=== PATIENT | female | born 1995 | race Caucasian/White ===

== ENCOUNTER 2019-10-02 11:35 | Outpatient (CLI) | payer MEDICAID, SELFPAY ==
[2019-10-02 11:50] VITALS: BMI 34.8
[2019-10-02 12:30] VITALS: BP 119/65; RESP 18
== END 2019-10-02 12:30 | disposition home or self-care (01) ==
PROVIDERS: Family Provider Family Medicine; Visit Provider Family Medicine
DX: O26.899 Other specified pregnancy related conditions, unspecified trimester (principal); Z3A.00 Weeks of gestation of pregnancy not specified
CPT/HCPCS: 59025

== ENCOUNTER 2019-10-06 12:02 | Outpatient (CLI) | payer MEDICAID, SELFPAY ==
--- NOTE | 2019-10-06 12:05 | PC.NURSE ---
When the patient entered her room, she stated she had a question for the nurse. The patient stated she had been giving herself her insulin injections in her thighs since her left, and that they had been leaving red welts on the tops of her thighs. This song writer looked at her thighs, and she had several nickel sized spots that were red where she had injected her insulin. This song writer told the patient she would speak with Dr. Coronado regarding where she could give herself her insulin injections, as she is refusing to give them to herself in her stomach.
[2019-10-06 12:17] VITALS: RESP 16; TEMP 36.7
[2019-10-06 12:21] VITALS: BP 114/59; PULSE 94
[2019-10-06 12:31] VITALS: BMI 34.9
[2019-10-06 12:37] VITALS: BP 104/52; PULSE 114
--- NOTE | 2019-10-06 12:48 | PC.NURSE ---
Dr. Coronado updated on patient having nickel size spots on her thighs. Dr. Coronado stated the patient should use the side of her thigh, and pinch up a section on the inside of her thigh to give herself her injection. Other options include her abdomen, and the back of her arm. The patient was updated on this information, and acknowledged understanding.
[2019-10-06 12:51] VITALS: BP 0/0
== END 2019-10-06 12:55 | disposition home or self-care (01) ==
LOC: OPOB 12:12 → OBGYN 12:50 → OPOB 14:56
PROVIDERS: Family Provider Family Medicine; PCP Family Medicine; Visit Provider Family Medicine
DX: O24.419 Gestational diabetes mellitus in pregnancy, unspecified control (principal); Z3A.00 Weeks of gestation of pregnancy not specified
CPT/HCPCS: 59025; 99211

== ENCOUNTER 2019-10-09 07:15 | Outpatient (CLI) | payer MEDICAID, SELFPAY ==
--- NOTE | 2019-10-09 07:31 | US_ITS ---
WS: [id number] ULTRASOUND OB LIMITED TECHNIQUE: Limited ultrasound examination of the fetus. CLINICAL INFORMATION: GESTATIONAL DIABETES COMPARISON: None. FINDINGS: Cervix 4.7 cm Single interuterine gestation. presentation is vertex Placental location is posterior. Placenta grade: 1 heart rate 138 BPM. Normal MAXX 15.06 cm weight 4 lbs. 12 oz. Estimated gestational age 33 weeks 3 days. Estimated delivery 3 020 Biophysical profile 8 out of 8. breathin movement: 2 tone: 2 Amniotic fluid: 2 IMPRESSION Normal biophysical profile 8 out of 8
== END 2019-10-09 07:16 | disposition home or self-care (01) ==
LOC: RAD 07:20
PROVIDERS: Family Provider Family Medicine; PCP Family Medicine; Visit Provider Family Medicine
DX: O24.419 Gestational diabetes mellitus in pregnancy, unspecified control (principal); Z3A.33 33 weeks gestation of pregnancy
CPT/HCPCS: 76816; 76819

== ENCOUNTER 2019-10-13 12:13 | Outpatient (CLI) | payer MEDICAID, SELFPAY ==
[2019-10-13 12:33] VITALS: RESP 16; TEMP 37.2
[2019-10-13 12:49] VITALS: RESP 17
[2019-10-13 13:09] VITALS: BMI 34.7
== END 2019-10-13 13:05 | disposition home or self-care (01) ==
PROVIDERS: Family Provider Family Medicine; PCP Family Medicine; Visit Provider Family Medicine
DX: O24.419 Gestational diabetes mellitus in pregnancy, unspecified control (principal); Z3A.00 Weeks of gestation of pregnancy not specified
CPT/HCPCS: 59025

== ENCOUNTER 2019-10-16 09:06 | Outpatient (CLI) | payer MEDICAID, SELFPAY ==
--- NOTE | 2019-10-16 09:19 | US_ITS ---
WS: [id number] BIOPHYSICAL PROFILE HISTORY: GESTATIONAL DIABETES COMPARISON: None available. Parameters are as follows: Breathin Movement: 2 Tone: 2 Fluid volume: 2 Vertex position. Cervix is closed at 4.3 cm. Heart rate at 141 bpm. Largest vertical pocket of amniot ic fluid 5.1 cm. Biophysical profile score: 8/8. US/US OB BPP wo NST [id number] IMPRESSION:
== END 2019-10-16 09:07 | disposition home or self-care (01) ==
PROVIDERS: Family Provider Family Medicine; PCP Family Medicine; Visit Provider Family Medicine
DX: O24.419 Gestational diabetes mellitus in pregnancy, unspecified control (principal)
CPT/HCPCS: 76816; 76819

== ENCOUNTER 2019-10-16 09:41 | Outpatient (CLI) | payer MEDICAID, SELFPAY ==
[2019-10-16 09:55] VITALS: RESP 17; TEMP 37.1; BMI 34.7
[2019-10-16 10:03] VITALS: BP 117/64; PULSE 101
[2019-10-16 10:40] VITALS: BP 117/64; PULSE 101; RESP 17; TEMP 37.1
== END 2019-10-16 10:40 | disposition home or self-care (01) ==
LOC: OPOB 09:47
PROVIDERS: Family Provider Family Medicine; PCP Family Medicine; Visit Provider Family Medicine
DX: O24.419 Gestational diabetes mellitus in pregnancy, unspecified control (principal); Z3A.00 Weeks of gestation of pregnancy not specified
CPT/HCPCS: 59025; 99211

== ENCOUNTER 2019-10-20 11:24 | Outpatient (CLI) | payer MEDICAID, SELFPAY ==
[2019-10-20 12:20] VITALS: BP 125/69; PULSE 118; RESP 18; TEMP 36.4
[2019-10-20 12:52] VITALS: BP 125/69; PULSE 118; RESP 18; TEMP 36.4; BMI 34.8
== END 2019-10-20 11:25 | disposition home or self-care (01) ==
LOC: OPOB 11:28
PROVIDERS: Family Provider Family Medicine; Visit Provider Family Medicine
DX: O24.419 Gestational diabetes mellitus in pregnancy, unspecified control (principal); Z3A.00 Weeks of gestation of pregnancy not specified
CPT/HCPCS: 59025

== ENCOUNTER 2019-10-23 09:14 | Outpatient (CLI) | payer MEDICAID, SELFPAY ==
--- NOTE | 2019-10-23 09:17 | US_ITS ---
WS: [id number] ULTRASOUND OB LIMITED TECHNIQUE: Limited ultrasound examination of the fetus. CLINICAL INFORMATION: GESTATIONAL DIABETES COMPARISON: October 16, 2019 FINDINGS: Cervix is closed and measures 4.3 cm Single interuterine gestation. presentation is vertex Placental location is posterior. Placenta grade: 2 heart rate 141 BPM. Normal MAXX BPD 8.8 cm Head circumference 31.3 cm Abdominal circumference 31.7 cm Femur length 7.0 CM Biophysical profile 8 out of 8. breathin movement: 2 tone: 2 Amniotic fluid: 2 IMPRESSION Normal biophysical profile 8 out of 8
== END 2019-10-23 09:15 | disposition home or self-care (01) ==
LOC: RAD 09:15
PROVIDERS: Family Provider Family Medicine; Visit Provider Family Medicine
DX: O24.419 Gestational diabetes mellitus in pregnancy, unspecified control (principal)
CPT/HCPCS: 76816; 76819

== ENCOUNTER 2019-10-27 10:22 | Outpatient (CLI) | payer MEDICAID, SELFPAY ==
[2019-10-27 10:37] VITALS: BP 129/71; PULSE 87
[2019-10-27 10:57] VITALS: BP 0/0
[2019-10-27 10:58] VITALS: BMI 35.2
[2019-10-27 10:59] VITALS: BP 131/70; PULSE 94
[2019-10-27 11:12] VITALS: BP 0/0
[2019-10-27 11:14] VITALS: BP 127/68; PULSE 98
== END 2019-10-27 11:17 | disposition home or self-care (01) ==
PROVIDERS: Family Provider Family Medicine; Visit Provider Family Medicine
DX: O24.419 Gestational diabetes mellitus in pregnancy, unspecified control (principal); Z3A.00 Weeks of gestation of pregnancy not specified
CPT/HCPCS: 59025

== ENCOUNTER 2019-10-30 09:50 | Outpatient (CLI) | payer MEDICAID, SELFPAY ==
--- NOTE | 2019-10-30 10:15 | US_ITS ---
WS: [id number] BIOPHYSICAL PROFILE AND LIMITED OB. HISTORY: GESTATIONAL DIABETES COMPARISON: 10/23/2019, 04/21/2019, 10/09/2019 Presentation: Cephalic Cervix: Closed. Placenta: Posterior, no previa or abruption. Grade: 1 HEART: FHR of 141BPM. measurements: BPD = 9.2 cm = 37w1d HC = 32.9 cm = 37w3d AC = 33.0 cm = 37w0d FL = 7.3 cm = 37w2d Visually the amount of amniotic fluid is normal. Largest vertical pocket of fluid is 4.9 cm. EFW: 3121g; 76 %. AGA by ultrasound: 37w2d DINESH by ultrasound: 11/18/2019 Measurements are internally concordant. age is within 2 weeks of the previously determined EDC at first trimester of 11/27/2019. Biophysical profile: Parameters are as follows: Breathin Movement: 2 Tone: 2 Fluid volume: 2 1. Biophysical profile score: 8/8. 2. Single intrauterine gestation of 37w2d and 11/18/2019. No growth asymmetry and appropriate growth since the first trimester ultrasound. 3. Estimated weight: 3121 g. US/US OB F/U w BPP wo NST IMPRESSION:
== END 2019-10-30 09:51 | disposition home or self-care (01) ==
LOC: US 09:51
PROVIDERS: Family Provider Family Medicine; PCP Family Medicine; Visit Provider Family Medicine
DX: O24.419 Gestational diabetes mellitus in pregnancy, unspecified control (principal); Z36.2 Encounter for other antenatal screening follow-up; Z3A.37 37 weeks gestation of pregnancy
CPT/HCPCS: 76816; 76819

== ENCOUNTER 2019-10-30 10:43 | Outpatient (CLI) | payer MEDICAID, SELFPAY ==
[2019-10-30 10:50] VITALS: BMI 35.2
[2019-10-30 11:36] VITALS: BP 118/72; PULSE 78; RESP 18
== END 2019-10-30 11:36 | disposition home or self-care (01) ==
PROVIDERS: Family Provider Family Medicine; PCP Family Medicine; Visit Provider Family Medicine
DX: O24.419 Gestational diabetes mellitus in pregnancy, unspecified control (principal); Z3A.00 Weeks of gestation of pregnancy not specified
CPT/HCPCS: 59025

== ENCOUNTER 2019-11-06 12:20 | Outpatient (CLI) | payer MEDICAID, SELFPAY ==
--- NOTE | 2019-11-06 12:45 | US_ITS ---
WS: [id number] BIOPHYSICAL PROFILE HISTORY: GESTATIONAL DIABETES COMPARISON: 10/30/2019 Parameters are as follows: Breathin Movement: 2 Tone: 2 Fluid volume: 2 Single intrauterine gestation in vertex presentation. Heart rate 147 bpm. Placenta is posterior and g rade 1. Largest vertical pocket of amniotic fluid is 5.8 cm. Biophysical profile score: 8/8. US/US OB BPP wo NST [id number] IMPRESSION:
== END 2019-11-06 12:21 | disposition home or self-care (01) ==
LOC: US 12:20
PROVIDERS: Family Provider Family Medicine; PCP Family Medicine; Visit Provider Family Medicine
DX: O24.419 Gestational diabetes mellitus in pregnancy, unspecified control (principal)
CPT/HCPCS: 76819

== ENCOUNTER 2019-11-06 12:50 | Outpatient (CLI) | payer MEDICAID, SELFPAY ==
[2019-11-06 13:00] VITALS: BMI 35.2
[2019-11-06 13:02] VITALS: BP 122/79; PULSE 112; RESP 16; TEMP 36.5
[2019-11-06 13:31] VITALS: BP 132/67; PULSE 90
== END 2019-11-06 13:32 | disposition home or self-care (01) ==
PROVIDERS: Family Provider Family Medicine; PCP Family Medicine; Visit Provider Family Medicine
DX: O24.419 Gestational diabetes mellitus in pregnancy, unspecified control (principal); Z3A.00 Weeks of gestation of pregnancy not specified
CPT/HCPCS: 59025; 99211

== ENCOUNTER 2019-11-10 10:34 | Outpatient (CLI) | payer MEDICAID, SELFPAY ==
[2019-11-10 10:41] VITALS: BMI 35.2
[2019-11-10 10:48] VITALS: RESP 18; TEMP 36.8
[2019-11-10 10:50] VITALS: BP 0/0; BP 122/67; PULSE 120
[2019-11-10 10:56] VITALS: BP 118/62; PULSE 120
== END 2019-11-10 11:05 | disposition home or self-care (01) ==
LOC: OPOB 10:37
PROVIDERS: Family Provider Family Medicine; PCP Family Medicine; Visit Provider Family Medicine
DX: O24.419 Gestational diabetes mellitus in pregnancy, unspecified control (principal); Z3A.00 Weeks of gestation of pregnancy not specified
CPT/HCPCS: 59025

== ENCOUNTER 2019-11-13 12:14 | Outpatient (CLI) | payer MEDICAID, SELFPAY ==
--- NOTE | 2019-11-13 12:25 | US_ITS ---
WS: [id number] US OB F/U w BPP wo NST REASON FOR EXAM: GESTATIONAL DIABETES FINDINGS: Biophysical profile 04/30. A single fetus is seen in the cephalic presentation a posterior placenta is noted. Placenta appears t o be grade 2 The heart rate with a due date of November 27, 2019. 150 bpm. The fetus appears to be by gestational age 38 weeks gestation. US/US OB F/U w BPP wo NST IMPRESSION: Biophysical profile 04/30 The fetus is at 38 weeks gestation with a due date of November 27, 2019
== END 2019-11-13 12:15 | disposition home or self-care (01) ==
LOC: US 12:17
PROVIDERS: Family Provider Family Medicine; PCP Family Medicine; Visit Provider Family Medicine
DX: O24.419 Gestational diabetes mellitus in pregnancy, unspecified control (principal); Z3A.38 38 weeks gestation of pregnancy
CPT/HCPCS: 76816; 76819

== ENCOUNTER 2019-11-13 12:41 | Outpatient (CLI) | payer MEDICAID, SELFPAY ==
[2019-11-13 13:13] VITALS: BP 113/69; PULSE 94; RESP 16
[2019-11-13 13:30] VITALS: TEMP 36.9
[2019-11-13 13:32] VITALS: BMI 35.4
== END 2019-11-13 13:26 | disposition home or self-care (01) ==
PROVIDERS: Family Provider Family Medicine; PCP Family Medicine; Visit Provider Family Medicine
DX: O24.419 Gestational diabetes mellitus in pregnancy, unspecified control (principal); Z3A.00 Weeks of gestation of pregnancy not specified
CPT/HCPCS: 59025; 99211

== ENCOUNTER 2019-11-16 20:00 | Inpatient (IN) | payer MEDICAID, SELFPAY ==
--- NOTE | 2019-11-09 14:26 | ANES.PREANE2 ---
Pre-Anesthetic Assessment Pre-Anesthetic Assessment: Height/Weight: Height 1.65 m Preop Diagnosis: IUP Proposed Procedure: Epidural Familial anesthetic complications: None, but patient states she's had back pain since her epidural last time and would like to avoid placement this Social: Social History: No alcohol and No tobacco Exam: Pre-Anes Outpt Exam: alert, oriented x 3, clear to auscultation bilaterally and regular rate & rhythm Airway: Cervical ROM: WNL MP: 2 Dentition: Full Pulmonary: Pulmonary: None reported CV/HEM: CV/HEM: None reported : : None reported Hepatic: Hepatic: None reported GI: GI: GERD Metabolic: Comments: gestational DM Musc/skel: Musc/skel: Lower Back Pain and Scoliosis Comments: ? Scoliosis - informed by chiropractor Multiple broken bones L hip locks up for 20 minutes - severe muscle cramping (caused by sitting and walking too long. Has to wait these pains out, nothing helps). Neuropsych: Neuropsych: None reported Anesthetic Plan: ASA status: 2 Anesthesia: Regional (specify below) Other: epidural Risk of > 500 ml blood loss (7ml/kg in children): Yes, adequate IV access and fluids planned Data Anesthesia Cardiac Studies: No Data to Display
[2019-11-16] VITALS (10 sets, daily range): BP systolic 0–135; BP diastolic 0–74; PULSE 75–116; RESP 16; TEMP 37; BMI 35.7
[2019-11-16 20:50] LABS: Basophils % 0.2 %; Eosinophils # 0.1 10^3/uL (0.0-0.8); Eosinophils % 0.5 %; Hematocrit 33.2 % (37.0-47.0); Hemoglobin 10.4 g/dL (11.5-15.3); Lymphocytes # 1.8 10^3/uL (0.8-4.8); Mean Corpuscular HGB Conc 31.3 g/dL (30.0-36.0); Mean Corpuscular Hemoglobin 26.9 pg (28.0-34.0); Mean Corpuscular Volume 85.8 fL (81-99); Mean Platelet Volume 10.1 fL (7.4-10.4); Monocytes # 0.9 10^3/uL (0.2-0.9); Monocytes % 9.2 %; Neutrophils # 6.6 10^3/uL (1.8-7.7); Neutrophils % 70.6 %; Nucleated Red Blood Cells % 0 %; Platelet Count 279 10^3/cmm (130-400); Red Blood Count 3.87 10^6/uL (4.1-5.3); Red Cell Distribution Width 14.9 % (12.1-15.1); White Blood Count 9.3 10^3/uL (4.0-10.0)
[2019-11-16] MEDS: miSOPROStol 100 mcg tablet 25 MCG VAGINAL (21:36)
[2019-11-16 21:40] LABS: Glucose Point of Care 83 mg/dL (70-110)
[2019-11-17] VITALS (54 sets, daily range): BP systolic 0–123; BP diastolic 0–81; PULSE 66–91; RESP 16–17; TEMP 36.7–36.9
[2019-11-17 06:53] LABS: Glucose Point of Care 63 mg/dL (70-110)
--- NOTE | 2019-11-17 07:35 | P.HP_ITS ---
Providers/Chief Complaint Admitting Physician: Jazz Coronado MD Primary Care Provider: Jazz Coronado MD Chief Complaint: supervision of high risk preg est due date 11/28/19 HPI DATA ANALYTICS ANALYST History of Present Illness Casie Reid is a 24 year old female 3 para 1-0-1-1 with an EDC of 11/27/2019 as determined by ultrasound done at 8-1/2 weeks gestation on 04/21/2019. She presents last evening at 38-3/7 weeks gestation for cervical ripening and i nduction of labor secondary to gestational diabetes requiring insulin. She has been well controlled with progressively increasing doses of insulin. testing has been reassuring, and growth ultrasounds reveal no polyhydramnios nor large for gestational age status. Her course has also been complicated by anemia of , obesity complicating and rubella nonimmune s tatus. Present Details : 3 Para: 1 Date of Last Menstrual Period: 10/06/18 Calculated Date of Delivery: 07/13/19 Gestational Age Based on Last Menstrual Period: 57 Dating criteria OB: based on 1st trimester US only care: good care Ultrasounds: normal 1st trimester US and normal mid trimester US Obstetrical complications: gestational diabetes (Requiring insulin) Medical complications OB: other (Anemia, obesity, rubella nonimmune) Labs Blood type OB HPI: A (+) positive Rubella: Non-Immune RPR: Negative GBS: Negative HBsAG: Negative Other Lab Information: Antibody screen: Negative Hemoglobin: Initially 14.8, 28-week recheck 10.9 Platelets: 300 Urine culture: Negative Hep C antibody: Negative Varicella: Immune HIV screen: Negative Pap: LS IL GC/Chlamydia: Negative/negative 1 hour GTT: 177 3-hour GTT: Fasting 107, 1 hour 210, 2-hour 184, 3-hour 146 Review of Systems Const: Denies: fever or chills : Denies: vaginal odor, vaginal bleeding, vaginal discharge or pelvic pain Psych: Denies: anxiety or depression Medications/Allergies Allergies Allergy/AdvReac Type Severity Reaction Status Date / Time No Known Allergies Allergy Verified 10/06/19 13:13 [facility] DATA ANALYTICS ANALYST Medical History (Updated 11/17/19 @ 07:59 by Jazz Coronado MD) Anxiety Depression Migraine headache Surgical History (Updated 11/17/19 @ 07:47 by Jazz Coronado MD) History of colonoscopy History of cranioplasty Social History (Updated 11/17/19 @ 07:50 by Jazz Coronado MD) Smoking and tobacco status: former smoker Substance/Drug Use: never Adopted: No Caregiver/support person: Yes Lives independently: Yes Household members: spouse and children Marital status: Number of children: 1 Number of grandchildren: 0 Education level details: High school graduate, some college Current occupational status: unemployed Current occupational exposures/hazards: No History History 3 Term 1 Miscarriages/Ectopic 1 0 Living Children 1 Past Pregnancies Del. Date GA/Weeks Outcome Route Wt Inf Gender Labor Lgth Comp. Anesth esia Location Unknown spontaneous 02/19/14 41 live - full term Vaginal 7 lb 8 oz Male Ot her [facility] Delivery Date: No notes to display Delivery Date: 02/19/14 On 11/17/19 @ 07:52 Jazz Coronado Induction of labor, meconium stained fluid Vitals/I&O/Wt Last Vital Signs Temp 98.4 F 11/17/19 04:13 Pulse 76 11/17/19 07:01 Resp 16 11/17/19 04:13 BP 104/63 11/17/19 07:01 Weight last 48 hrs Weight 215 lb Physical Exam Narrative: EXAM NARRATIVE: Patient had mild and irregular contractions upon arrival which she states were not really painful. heart tones were category 1 with moderate variability, normal baseline, many accelerations and no decelerations. For complete physical examination please refer to her record. Const: COMMON NORMALS: no apparent distress, oriented x3, no limitations, healthy appearing, alert and well nourished : MANUAL OB EXAM: dilated 1 cm, effaced (40%), station high and other (Vertex) Neuro: COMMON NORMALS: oriented x3 SENSORIUM/ORIENTATION: Yes alert Psych: COMMON NORMALS: mental status grossly normal, thought process normal, cooperative, affect normal, speech normal and activity/motor behavior normal SPEECH: Yes normal speech THOUGHT PROCESS: normal thought process Data : 11/16/19 20:39 A&P Assessment and plan (1) 38 weeks gestation of : Status: Acute Code(s): Z3A.38 - 38 weeks gestation of (2) Encounter for induction of labor: Patient received a single dose of Cytotec last evening and continues to contract every 2 to 3 minutes off of that dose. She states that her pain has increased in intensity. Her cervix went from 1 cm dilated and 40% effaced to 3 cm dilated and 50% effaced with vertex still high to -3 station. At this point we will have her eat breakfast and then will entertain initiation of Cytotec per the moderate dose protocol. Status: Acute Code(s): Z34.90 - Encounter for supervision of normal , unspecified, unspecified trimester (3) Gestational diabetes requiring insulin: Patient received her Levemir last evening 55 units subcutaneously and will eat breakfast this morning. We will then monitor her blood glucose every 2 hours while she is actively laboring. Status: Acute Code(s): O24.414 - Gestational diabetes mellitus in , insulin controlled (4) Rubella non-immune status, antepartum: Patient will receive rubella immunization Status: Acute Code(s): O99.89 - Other specified diseases and conditions complicating , childbirth and the puerperium; Z28.3 - Underimmunization status (5) Anemia affecting in third trimester: Patient continues with her iron Status: Acute Code(s): O99.013 - Anemia complicating , third trimester (6) Obesity affecting in third trimester: Patient gained less than 25 pounds during this Status: Acute Code(s): O99.213 - Obesity complicating , third trimester (7) LGSIL on Pap smear of cervix: We plan for repeat Pap with colposcopy Status: Acute Code(s): R87.612 - Low grade squamous intraepithelial lesion on cytologic smear of cervix (LGSIL) Attestations Medical Necessity Statement*: As patient has not yet delivered and is undergoing induction of labor secondary to gestational diabetes requiring insulin, she will continue to need inpatient hospitalization. Coding Level of Care Code Acute Desizing Machine Offbearer for Chg Fwd Diagnoses 38 weeks gestation of Z3A.38 Encounter for induction of labor Z34.90 Gestational diabetes requiring insulin O24.414 Rubella non-immune status, antepartum O99.89; Z28.3 Anemia affecting in third trimester O99.013 Obesity affecting in third trimester O99.213 LGSIL on Pap smear of cervix R87.612
[2019-11-17] MEDS: lactated ringers 1,000 ML 125 ML IV (09:43)
[2019-11-17] MEDS: oxytocin 30 UNIT/500 ML BAG IV (09:43)
[2019-11-17 11:11] LABS: Glucose Point of Care 89 mg/dL (70-110)
[2019-11-17] MEDS: fentaNYL 50 mcg/mL INJ 2mL IV (16:08)
[2019-11-17 16:13] LABS: Glucose Point of Care 71 mg/dL (70-110)
--- NOTE | 2019-11-17 17:13 | P.PN_ITS ---
SUPERVISOR TUMBLING AND ROLLING Subjective Subjective: Interval history: Patient ate breakfast this morning and took a shower, and we then started Pitocin per the moderate dose protocol. She contracted as frequently as every 2 to 5 minutes while on maximum dose Pitocin (20 milliunits/min) for 2 hours and rated her pain an 8 out of 10. Upon recheck of her cervix, she was still 3 cm dilated perhaps had gone from 50 to 60% effaced and was still -3 station. She did take a dose of fentanyl for pain relief. Medications: Reviewed: Yes Labor: Pain Control: narcotic analgesia Dilation (cm): 3 Effacement (%): 60 Station: -3 Amniotic Membrane Status: Intact Monitor Mode: External Contraction Pattern: Regular Status: Category l Vitals/I&O/Wt Last Vital Signs Temp 98.1 F 11/17/19 09:18 Pulse 68 11/17/19 16:04 Resp 16 11/17/19 16:08 BP 121/81 11/17/19 16:04 11/17/19 11/17/19 11/17/19 06:59 14:59 22:59 Intake Total 558.366 / 558.366 595.333 / 1153.699 Balance 558.366 / 558.366 595.333 / 1153.699 Weight last 48 hrs Weight 215 lb Physical Exam Narrative: EXAM NARRATIVE: heart tones are category 1 with a normal baseline, moderate variability, many accelerations and no decelerations. Contractions are now every 2 to 5 minutes and of decreasing frequency and intensity now that the Pitocin has been discontinued. Data : 11/16/19 20:39 A&P Additional A&P Information At this point her glucose monitoring has been within guidelines for labor. We opted to discontinue the Pitocin and have her eat supper. We then discussed options to include going home to rest now to return within 24 to 36 hours, trying a dose of Cytotec and reevaluating in 4 hours with the option of going home then if not making cervical change, again with 24 to 36-hour follow-up and possible amniotomy. Upon rechecking her cervix, I recommended that we delete amniotomy as an option for now given her station and possibility of a long labor and risk of infection. At this point she will ambulate for a brief time and will then take another dose of Cytotec and will reevaluate in 4 hours. Attestations Medical Necessity Statement*: As patient is in the process of being induced she will continue to need inpatient hospitalization. Coding Level of Care Code Acute Home Performance Consultant for Bennett Harley
[2019-11-17] MEDS: miSOPROStol 100 mcg tablet 25 MCG VAGINAL ×2 (17:59→22:49)
[2019-11-17 19:27] LABS: Glucose Point of Care 77 mg/dL (70-110)
[2019-11-17] MEDS: promethazine 25 mg/mL SDV 1 mL IM (23:13)
[2019-11-17] MEDS: morphine 4 mg/mL SDV 1 mL 8 MG IM (23:14)
[2019-11-18] VITALS (100 sets, daily range): BP systolic 0–141; BP diastolic 0–92; PULSE 58–155; RESP 16–22; TEMP 36.7–37.2; O2SAT 97–100
[2019-11-18 06:46] LABS: Glucose Point of Care 71 mg/dL (70-110)
--- NOTE | 2019-11-18 08:22 | P.PN_ITS ---
RN ACUTE Subjective Subjective: Interval history: Last night patient had a dose of Cytotec and then took the low-dose morphine Phenergan sleeper. She contracted irregularly throughout the night and rated her pain at a 4 out of 10 but was able to get 5 hours of sleep and this morning was 4 cm dilated, 60% effaced and still -3 station. She ate breakfast and has been abiodun irregularly. Labor: Pain Control: tolerating well Dilation (cm): 4 Effacement (%): 60 Station: -3 Amniotic Membrane Status: Intact Monitor Mode: External Contraction Pattern: Irregular Contraction Intensity: Moderate Status: Category l Vitals/I&O/Wt Last Vital Signs Temp 98.3 F 11/18/19 05:06 Pulse 81 11/18/19 08:18 Resp 16 11/18/19 05:06 BP 113/61 11/18/19 08:18 11/17/19 11/18/19 11/18/19 22:59 06:59 14:59 Intake Total 595.333 / 1153.699 Balance 595.333 / 1153.699 Weight last 48 hrs Weight 215 lb Data : 11/16/19 20:39 A&P Additional A&P Information Amniotomy was performed just now at about 8:15 AM and was productive of a moderate to large amount of clear fluid. Patient states that she is doing fine right now without pain medication, and her blood glucose has been within goal range thus far. Patient states that she may reconsider on the epidural but declines that at this time. Attestations Medical Necessity Statement*: As patient has ruptured membranes and has not yet delivered she will continue to need inpatient hospitalization. Coding Level of Care Code Acute Carburetor Mechanic for Bennett Harley
[2019-11-18] MEDS: fentaNYL 50 mcg/mL INJ 2mL IV ×2 (09:13→10:22)
[2019-11-18 09:32] LABS: Glucose Point of Care 109 mg/dL (70-110)
[2019-11-18] MEDS: lactated ringers 1,000 ML 999 ML IV ×2 (10:20→11:15)
--- NOTE | 2019-11-18 11:21 | P.ANESUD_ITS ---
Pre-Anesthetic Update Pre-Anesthetic Assessment: Date of Surgery/Procedure: 11/18/19 Preop Merari gnosis: IUP Any changes to Pre-Anesthetic Assessment?: No Last Intake: 07:00 Labs Last 48hrs: Laboratory Results - last 48 hr 11/16/19 11/16/19 11/17/19 20:39 21:35 06:47 WBC 9.3 RBC 3.87 L Hgb 10.4 L Hct 33.2 L MCV 85.8 MCH 26.9 L MCHC 31.3 RDW 14.9 Plt Count 279 MPV 10.1 Neut % (Auto) 70.6 Lymph % (Auto) 19.0 [place] % (Auto) 9.2 Eos % (Auto) 0.5 Baso % (Auto) 0.2 Neut # (Auto) 6.6 Lymph # (Auto) 1.8 [place] # (Auto) 0.9 Eos # (Auto) 0.1 Baso # (Auto) 0.0 Nucleated RBC % (a uto) 0 Nucleated RBCs # 0.0 POC Glucose 83 63 11/17/19 11/17/19 11/17/19 11:08 15:58 19:24 WBC RBC Hgb Hct MCV MCH MCHC RDW Plt Count MPV Neut % (Auto) Lymph % (Auto) [place] % (Auto) Eos % (Auto) Baso % (Auto) Neut # (Auto) Lymph # (Auto) [place] # (Auto) Eos # (Auto) Baso # (Auto) Nucleated RBC % (a uto) Nucleated RBCs # POC Glucose 89 71 77 11/18/19 11/18/19 06:37 09:07 WBC RBC Hgb Hct MCV MCH MCHC RDW Plt Count MPV Neut % (Auto) Lymph % (Auto) [place] % (Auto) Eos % (Auto) Baso % (Auto) Neut # (Auto) Lymph # (Auto) [place] # (Auto) Eos # (Auto) Baso # (Auto) Nucleated RBC % (a uto) Nucleated RBCs # POC Glucose 71 109 Vitals: Temperature 98.9 F 11/18/19 08:30 Temperature Source Oral 11/18/19 08:30 Pulse Rate 72 11/18/19 11:17 Pulse Rhythm 11/16/19 20:36 Pulse Strength 3+ Normal 11/16/19 20:36 Respiratory Rate 17 02/26/20 10:22 Respiratory Effort 11/18/19 10:22 Respiratory Depth Normal 11/18/19 10:22 Respiratory Patter n 11/18/19 10:22 Blood Pressure 110/52 11/18/19 11:17 Blood Pressure Hannah n 73 11/18/19 11:17 Blood Pressure Pos ition Sitting 11/16/19 20:15 Pulse Oximetry 100 11/18/19 11:20 Oxygen Delivery Me thod 11/16/19 20:36 Exam: Pre-Anes Outpt Exam: alert, oriented x 3, clear to auscultation bilaterally and regular rate & rhythm Cardiac Studies: No Data to Display
--- NOTE | 2019-11-18 11:22 | ANES.PROC ---
Anesthesia Procedures Procedure/Date: 11/18/19 Epidural: Time Out Performed: Yes Consents Signed: Procedure Consent Consent: requested by attending/covering physician, from patient, risks and benefits reviewed and patient agrees to proceed Lumbar Level: L3-L4 Epidural position: sitting Epidural procedure: sterile prep of area, 1% lidocaine to numb the area, neg for paresthesia, 1.5% xylocaine 1:200k epi, placed PCEA, no systemic response, sterile dressing applied, L.U.D. no apparent complications and 0.2% Ropiavacaine @ mls/hr Additional Comments: Bupiv 0.25% 8cc and Fentanyl 100 mcg bolus @ 1118 slow
[2019-11-18 12:11] LABS: Glucose Point of Care 59 mg/dL (70-110)
[2019-11-18] MEDS: oxytocin 30 UNIT/500 ML BAG IV (12:40)
[2019-11-18] MEDS: dextrose 5%-lactated ringers 1,000 ML 125 ML IV (12:40)
[2019-11-18 14:07] LABS: Glucose Point of Care 57 mg/dL (70-110)
[2019-11-18 15:16] LABS: Glucose Point of Care 76 mg/dL (70-110)
--- NOTE | 2019-11-18 17:57 | P.PCNOB_ITS ---
Delivery Note: Date of delivery: November 18, 2019 Pre-Delivery Course: Patient arrived the evening of 11/16/2019 at 38-3/7 weeks gestation. A dose of Cytotec was placed that evening, and patient began abiodun fairly regularly. She went from 1 cm dilated and 50% effaced to 3 cm dilated and 60% effaced the morning of 11/17/2019. At that point she ate breakfast, took a shower and then we began Pitocin per the moderate dose protocol. After approximately 6 hours of Pitocin, 2 of which were at maximum dose of 20 milliunits/min, her cervix was unchanged. At that point we stopped the Pitocin, she ate supper and we placed a dose of Cytotec. She also had a low-dose morphine Phenergan sleeper and was able to get at least 5 hours of quality sleep the evening of 11/17/2019. This morning, after having some irregular contractions throughout the night, she was 4 cm dilated and 75% effaced. Amniotomy was performed at 8:15 AM and was productive of a moderate to large amount of clear fluid. Patient then experienced more intense contractions and opted for an epidural. She received it when she was 5 cm dilated and became comfortable. She then gradually dilated to an 8 and then an anterior rim and then was found to be completely dilated at 1650. Delivery: We began the active portion of the second stage of her labor at 1706. After a brief 8-minutes of pushing she delivered a viable female infant at 1714. Head was OA. There was no nuchal cord. Bulb suctioning was done upon delivery of the baby's head and of her body. Baby was placed on mother's abdomen while the cord was clamped by myself and cut by maternal grandmother. Gentle traction was placed on the cord, and intravenous Pitocin was begun in routine doses. Placenta delivered intact at 1720. It appeared normal. Perineum and cervix were inspected, and she was intact with the exception of some very mild bilateral periurethral abrasions. Fundal exam revealed a firm uterus which was just below the umbilicus. Post-Delivery Status: Estimated blood loss was 150 mL's. Mother and baby were stable. Baby had Apgars of 8 at 1 minute and 9 at 5 minutes and weighed 8 pounds 8 ounces and was 21 inches in length. A&P Assessment and plan (1) 38 weeks gestation of : Status: Acute Code(s): Z3A.38 - 38 weeks gestation of (2) Encounter for induction of labor: Status: Acute Code(s): Z34.90 - Encounter for supervision of normal , unspecified, unspecified trimester (3) Gestational diabetes requiring insulin: Status: Acute Code(s): O24.414 - Gestational diabetes mellitus in , insulin controlled (4) Rubella non-immune status, antepartum: Status: Acute Code(s): O99.89 - Other specified diseases and conditions complicating , childbirth and the puerperium; Z28.3 - Underimmunization status (5) Anemia affecting in third trimester: Status: Acute Code(s): O99.013 - Anemia complicating , third trimester (6) Obesity affecting in third trimester: Status: Acute Code(s): O99.213 - Obesity complicating , third trimester (7) LGSIL on Pap smear of cervix: Status: Acute Code(s): R87.612 - Low grade squamous intraepithelial lesion on cytologic smear of cervix (LGSIL) (8) (normal spontaneous vaginal delivery): Routine orders Status: Acute Code(s): O80 - Encounter for full-term uncomplicated delivery (9) Periurethral abrasion, delivered, current hospitalization: Status: Acute Code(s): O71.82 - Other specified trauma to perineum and vulva Coding Level of Care Code Acute Learning Analyst for Chg Fwd Diagnoses 38 weeks gestation of Z3A.38 Encounter for induction of labor Z34.90 Gestational diabetes requiring insulin O24.414 Rubella non-immune status, antepartum O99.89; Z28.3 Anemia affecting in third trimester O99.013 Obesity affecting in third trimester O99.213 LGSIL on Pap smear of cervix R87.612 (normal spontaneous vaginal delivery) O80 Periurethral abrasion, delivered, current hospitalization O71.82
[2019-11-18] MEDS: fentaNYL 50 mcg/mL INJ 2mL 25 MCG IVP (21:50)
--- NOTE | 2019-11-18 22:06 | P.PN_ITS ---
PALEONTOLOGY TEACHER Subjective Subjective: Interval history: Patient was still in the labor room and had a fundal exam at 8:45 PM. At that time she was firm and 2 fingerbreadths below the umbilicus. She had the intent to take a shower but the water was cold she but did get up to go to the bathroom, and at that time she voided 500 mL's of urine. She then proceeded to room. This was at 9 PM. At that time her nurse noticed her pulse was in the 130s. Her nurse filled her water and gave her a minute to see if it was may be because of the walk from the labor room area to the room. However, her pulse was still in the 130s. The patient was sitting in the chair in the room at this time. Her nurse, upon realizing this sustained heart rate in the 130s asked the patient to get up from her chair and go to the bed so that she could do another fundal massage and exam. When she stood up, she had a large gush of blood. Her nurse was holding the baby. She quickly put the baby in her Isolette and escorted the patient to her bed. At that time several nurses and myself were called to the room for assistance. Fundal exam found her uterus to be boggy and at the umbili cus. There was another large outpouring of blood, and her nurse had expressed a large clot. Labor: Dilation (cm): 4 Effacement (%): 60 Station: 0 Amniotic Membrane Status: Ruptured Monitor Mode: External Contraction Pattern: Regular Contraction Intensity: Moderate Status: Category l Vitals/I&O/Wt Last Vital Signs Temp 98.6 F 11/18/19 18:45 Pulse 90 11/18/19 20:24 Resp 18 11/18/19 18:45 BP 0/0 11/18/19 20:51 Pulse Ox 100 11/18/19 11:49 11/18/19 11/18/19 11/18/19 06:59 14:59 22:59 Intake Total 2365.75 / 2365.75 878.667 / 3244.417 Output Total 600 / 600 Balance 2365.75 / 2365.75 278.667 / 2644.417 Physical Exam Urinary Catheter Management^: Mclean: Cath Placed During This Visit: yes Urethral Indwelling: No Urinary Catheter Date of Insertion: 11/18/19 Urinary Catheter Time of Insertion: 12:00 Data : 11/16/19 20:39 A&P Assessment and plan (1) atony of uterus with hemorrhage, delivered: A second bag of Pitocin was begun and was initially at the rate and then was increased to 999 or wide open. Patient was given 800 mcg of Cytotec per rectum after a brief recheck of the vagina for lacerations. She also received a bolus of LR and received a dose of Methergine IM. She received 25 mcg of fentanyl IV at 2120, which was after the Methergine. There were serial fundal exams done and rapid progression along with fundal massage secondary to the intermittent atony. Several large clots were expressed, all p rior to the Methergine taking effect. Currently, her vital signs are stable. Her blood loss estimated by weight of towels, clots, chucks and gown was 1190 mL. We have a stat hemoglobin and hematocrit pending, and she also has her 12- hour routine hemoglobin and hematocrit upcoming. We also run a type and crossmatch in the event that she will need blood transfusion. We also closely monitor her with serial fundal checks. Her most recent exam was at 2200 and revealed her uterus to be firm, 2 fingerbreadths below the umbilicus and with scant bleeding. Status: Acute Code(s): O72.1 - Other immediate hemorrhage Attestations Medical Necessity Statement*: As patient has recently delivered and had her hemorrhage she will continue to need inpatient care. Coding Level of Care Code Acute Superintendent Plant Protection for Alyshag Cherri Diagnoses atony of uterus with hemorrhage, delivered O72.1
[2019-11-18 22:42] LABS: Hematocrit 36.5 % (37.0-47.0); Hemoglobin 10.9 g/dL (11.5-15.3)
[2019-11-18] MEDS: fentaNYL 50 mcg/mL INJ 2mL IVP (23:01)
[2019-11-18] MEDS: ferrous sulfate EC 325 mg Tablet PO (23:23)
[2019-11-19] VITALS (8 sets, daily range): BP systolic 103–124; BP diastolic 65–77; PULSE 69–84; RESP 15–18; TEMP 36.6–36.8; O2SAT 97–99
[2019-11-19] MEDS: lactated ringers 1,000 ML 125 ML IV (00:12)
--- NOTE | 2019-11-19 00:33 | PC.NURSE ---
Fundal rub was performed at 2044 and found to be firm, 2 below umbilcus with scant bleeding. Patient was assisted by this RN to the bathroom and voided 500 ml. Patient requested a shower and this RN remained in bathroom with patient. Shower was cold and patient decided to shower at a later time. Patient ambulated to her room with this RN walking beside her. Patient denies and dizziness, light-headedness or an increase in bleeding. Patient sat in recliner in room and was holding baby. Vital signs were obtained and HR was noted to be in 130s. HR was confirmed with palpation of the radial pulse by this RN. Discussed increased HR and encouraged patient to take deep breaths while this RN filled her water cup to allow HR to settle in case it was caused by ambulation to PP room. When RN returned HR remained in 130s. This RN took baby and placed her in open crib and assisted mother to bed for assessment and fundal massage. Fundus noted to be at umbilicus, boggy with heavy bleeding and the expulsion of a large clot. Called for assistance and several RNs, dakota biggs and Dr Coronado arrived in the room. 800 mcg cytotec given rectally by Dr Coronado at 2104, LR bolus was started at 2105, Methergine IM given in R thigh by PAMELLA at 2109. 2nd bag of Pitocin started at 600ml/hr at 2114 by TEETEE and increased to 999/hr at 2119 by PAMELLA, Fentanyl 25mcg given at 2119 per this RN. Several fudal massages performed during this time to ensure firmness and expel clots. 7 large clots in total expelled from vagina all prior to 2114. Patient continually comforted and reassured during this time and advised of everything that was happening. Pulse Ox remained on patient and HR was 95 by 2119. Several blood pressures obtained and WNL. Fundal massage at 2199 is WNL, scant bleeding no clots, firm and 2 below umbilicus. Will continue to monitor closely.
[2019-11-19 06:34] LABS: Hematocrit 32.4 % (37.0-47.0); Mean Corpuscular HGB Conc 30.9 g/dL (30.0-36.0); Mean Corpuscular Volume 87.6 fL (81-99); Mean Platelet Volume 10.3 fL (7.4-10.4); Platelet Count 215 10^3/cmm (130-400); Red Cell Distribution Width 14.9 % (12.1-15.1); White Blood Count 10.4 10^3/uL (4.0-10.0)
[2019-11-19] MEDS: benzocaine-menthol 78 gm Canister 1 SPRAY TOPICAL (09:25)
[2019-11-19] MEDS: ferrous sulfate EC 325 mg Tablet PO ×2 (09:25→18:17)
[2019-11-19] MEDS: prenatal vitamin Capsule 1 CAP PO (09:25)
[2019-11-19] MEDS: docusate sodium 100 mg Capsule PO ×2 (09:25→18:17)
[2019-11-19 12:15] LABS: Hematocrit 30.8 % (37.0-47.0); Hemoglobin 9.5 g/dL (11.5-15.3); Mean Corpuscular HGB Conc 30.8 g/dL (30.0-36.0); Mean Corpuscular Hemoglobin 27.9 pg (28.0-34.0); Mean Corpuscular Volume 90.6 fL (81-99); Mean Platelet Volume 10.8 fL (7.4-10.4); Platelet Count 233 10^3/cmm (130-400); Red Cell Distribution Width 15.2 % (12.1-15.1); White Blood Count 9.6 10^3/uL (4.0-10.0)
--- NOTE | 2019-11-19 12:46 | ANE.PACU2 ---
 Inpatient post-anesthesia follow up: Airway intact: Yes Vital signs: Temperature 98.0 F Pulse Rate 76 Respiratory Rate 18 Blood Pressure 120/73 Pulse Oximetry 99 Oxygen Delivery Me thod Room Air Oxygen Flow Rate Fraction of Inspir ed Oxygen Hydration adequate: Yes Nausea and vomiting: No Pain level: 1 Mental status: Baseline Additional Comments: No headaches, no lower extremity weakness, no signs of infection
[2019-11-19 17:56] LABS: Hematocrit 30.5 % (37.0-47.0); Hemoglobin 9.3 g/dL (11.5-15.3)
--- NOTE | 2019-11-19 18:19 | P.DS_ITS ---
Discharge Providers VACCINES SOLUTIONS SPECIALIST Date of Admission: 11/16/19 20:00 Date of Discharge: 11/19/19 Attending Provider at Admission: Jazz Coronado MD Attending Provider at Discharge: Jazz Coronado MD Primary Care Provider: Jazz Coronado MD Diagnoses at Discharge Discharge Diagnosis (1) atony of uterus with hemorrhage, delivered: Status: Acute Problem details: resolved, hemoglobin stable at 9.3...patient able to perform ADLs without symptoms...continue iron (2) Periurethral abrasion, delivered, current hospitalization: Status: Acute (3) (normal spontaneous vaginal delivery): Status: Acute (4) LGSIL on Pap smear of cervix: Status: Acute Problem details: schedule colposcopy for 6-8 weeks post (5) Obesity affecting in third trimester: Status: Acute (6) Anemia affecting in third trimester: Status: Acute (7) Rubella non-immune status, antepartum: Status: Acute Problem details: immunization post (8) Gestational diabetes requiring insulin: Status: Acute Problem details: will do 2 hr gtt at post visit (9) Encounter for induction of labor: Status: Acute (10) 38 weeks gestation of : Status: Acute Reason for Visit Reason for Visit: Reason For Visit: supervision of high risk preg est due date 11/28/19 Hospital Course Hospital Course: Patient presented the evening of 11/16/19 for IOL. She received one dose of cytotec that evening and went from 1.5cm dilated and 50% effaced to 3cm dilated and 60% effaced. We then started pitocing after she had breakfast on 11/17/19. She had no cervical change after 6 hours of pitocin. She then ate supper, took a break, and we placed a second dose of cytotec, and she took a low dose morphine/phenergan sleeper to get some rest. After breakfast on 11/18/19 she was abiodun irregularly and was 4cm dilated and 75% effaced. She underwent amniotomy and then opted for an epidural. She was soon 5cm dilated and then needed a low dose of pitocin, 2 mu/min to obtain regular contractions and dilate to complete. After a brief active portion of the second stage she delivered a viable female weighing 8# 8oz. Mother and baby were stable until patient experienced a post hemorrhage secondary to uterine atony which resulted in approximately 1190ml of blood loss. Please see progress note from last evening for details. This morning she was looking and feeling better. She has no abdominal or back pian, minimal bleeding and is able to perform her ADLs without event. Discharge Summary: Her hemoglobin this morning was 10.0 at 12 hours post delivery and was 9.3 24 hours after delivery and 20 hours post PPH. She is uncertain about control at this time and feels ready to go home. Information Peripartum Data: Delivery Method: Vaginal Physical Exam Const: COMMON NORMALS: no apparent distress, oriented x3, no limitations, healthy appearing, alert and well nourished Resp: COMMON NORMALS: normal respiratory effort and clear to auscultation bilaterally EFFORT & INSPECTION: Yes able to speak in complete sentences AUSCULTATION: clear to auscultation bilaterally Cardio: COMMON NORMALS: regular rate, regular rhythm, S1 normal heart sound, S2 normal heart sound, no gallops, no clicks, no murmurs and peripheral pulses 2+ throughout RATE: regular rate RHYTHM: regular rhythm HEART SOUNDS: S1 normal and S2 normal PERIPHERAL PULSES: pulses 2+ throughout : UTERUS PALPATION: Yes other OB (uterus firm, non tender and at least 2 fingersbreadth below the umbilicus) Extremity: GENERAL: No edema Neuro: COMMON NORMALS: oriented x3 SENSORIUM/ORIENTATION: Yes alert Psych: COMMON NORMALS: mental status grossly normal, thought process normal, cooperative, affect normal, speech normal and activity/motor behavior normal SPEECH: Yes normal speech THOUGHT PROCESS: normal thought process Skin: COMMON NORMALS: skin turgor normal GENERAL SKIN EXAM: turgor normal and no pallor Urinary Catheter Management^: Mclean: Cath Placed During This Visit: yes Urethral Indwelling: No Urinary Catheter Date of Insertion: 11/18/19 Urinary Catheter Time of Insertion: 12:00 Discharge Data Data Completed and Pending: Pending at discharge Category Date Time Status Leukocyte Reduced RBC Routine Lab 11/18/19 22:34 Results Type and Screen R outine Lab 11/18/19 22:34 Results Labs from last 24 hours 11/19/19 11/19/19 11/19/19 17:05 10:52 06:15 WBC 9.6 10.4 H RBC 3.40 L 3.70 L Hgb 9.3 L 9.5 L 10.0 L Hct 30.5 L 30.8 L 32.4 L MCV 90.6 87.6 MCH 27.9 L 27.0 L MCHC 30.8 30.9 RDW 15.2 H 14.9 Plt Count 233 215 MPV 10.8 H 10.3 Blood Type Antibody Screen Crossmatch 11/18/19 11/16/19 22:18 20:39 WBC RBC Hgb 10.9 L Hct 36.5 L MCV MCH MCHC RDW Plt Count MPV Blood Type A Positive Antibody Screen Negative Crossmatch See Detail Vitals: Last Vital Signs Temp 97.9 F 11/19/19 18:02 Pulse 84 11/19/19 18:02 Resp 15 11/19/19 18:02 BP 124/75 11/19/19 18:02 Pulse Ox 99 11/19/19 06:00 Discharge Plan Discharge Patient Disposition: Home, Self-Care Condition: Stable Prescriptions: Continued ferrous sulfate [Iron (ferrous sulfate)] 325 mg (65 mg iron) Tablet 325 mg PO DAILY RF: 0 PNV cmb#95-ferrous fumarate-FA [] 28 mg iron- 800 mcg Tablet 1 tab PO DAILY RF: 0 Discontinued Levemir U-100 Insulin 100 unit/mL Solution 50 unit SUBCUT BID RF: 0 Referrals: Jazz Coronado MD [Primary Care Provider] - 6 Weeks (Please call Dr. Coronado's office tomorrow to schedule an appt. for mom in 6 weeks. At this time we will do your 2 hr gtt, so be fasting. You will also need a colposcopy at 6-[address] Coronado. We will also likely check your hemoglobin at your baby's visit.) Discharge Diet: Usual diet Discharge Activity: Increase activity as tolerated Patient Instructions: Caring for Your Baby (GEN), Vaginal Delivery (GEN), OB Discharge Report, OB Food/Drug Interaction Guide, OB Home Care Instructions, OB Care at Home, OB Home Care, OB Proud Parent Packet Discharge Attestations VACCINES SOLUTIONS SPECIALIST Time Spent in Discharge Care*: less than 30 min Specific Discharge Activities: Specific discharge activities: educating patient, discussing with pcp/other providers, documenting/other paperwork and evaluating patient/reviewing data Status at Discharge: Cognitive status at discharge: cognitively intact , Behavioral status at discharge: cooperative , Functional status at discharge: independent ambulation Overall status at discharge: patient is progressing back to baseline Coding Level of Care Code Acute Final Finisher for Chg Fwd Diagnoses atony of uterus with hemorrhage, delivered O72.1 Periurethral abrasion, delivered, current hospitalization O71.82 (normal spontaneous vaginal delivery) O80 LGSIL on Pap smear of cervix R87.612 Obesity affecting in third trimester O99.213 Anemia affecting in third trimester O99.013 Rubella non-immune status, antepartum O99.89; Z28.3 Gestational diabetes requiring insulin O24.414 Encounter for induction of labor Z34.90 38 weeks gestation of Z3A.38
[2019-11-19] MEDS: measles,mumps,rubella pf Vial (w/diluent) 0.5 ML SUBCUT (18:24)
== END 2019-11-19 19:25 | disposition home or self-care (01) | DRG 806 ==
PROVIDERS: Admitting Provider Family Medicine; Family Provider Family Medicine; PCP Family Medicine; Visit Provider Family Medicine
DX: O24.414 Gestational diabetes mellitus in pregnancy, insulin controlled (principal); O72.1 Other immediate postpartum hemorrhage; Z37.0 Single live birth; D62 Acute posthemorrhagic anemia; O99.213 Obesity complicating pregnancy, third trimester; O71.82 Other specified trauma to perineum and vulva; O99.013 Anemia complicating pregnancy, third trimester; K21.9 Gastro-esophageal reflux disease without esophagitis; O99.613 Diseases of the digestive system complicating pregnancy, third trimester; O99.89 Other specified diseases and conditions complicating pregnancy, childbirth and the puerperium; O99.344 Other mental disorders complicating childbirth; O67.9 Intrapartum hemorrhage, unspecified; R87.612 Low grade squamous intraepithelial lesion on cytologic smear of cervix (LGSIL); F32.9 Major depressive disorder, single episode, unspecified; F41.9 Anxiety disorder, unspecified; Z3A.38 38 weeks gestation of pregnancy; Z28.3 Underimmunization status; Z87.891 Personal history of nicotine dependence; Z79.818 Long term (current) use of other agents affecting estrogen receptors and estrogen levels; Z79.4 Long term (current) use of insulin
CPT/HCPCS: 12345; 36415; 36416; 51702; 59409; 82962; 85014; 85018; 85025; 85027; 86850; 86900; 86920; 90707; 96372; 96374; 96375; 99211; J1815; J2270; J2550; J2795; J3010; J3490

== ENCOUNTER → 2020-01-28 11:03 | Outpatient (BNVA) | payer MEDICAID, SELFPAY | PROVIDERS: Family Provider Family Medicine; PCP Family Medicine; Referring Provider Family Medicine; Visit Provider Podiatrist Foot & Ankle Surgery | DX: M79.675 Pain in left toe(s) (principal); M77.32 Calcaneal spur, left foot | CPT/HCPCS: 73630 ==

== ENCOUNTER → 2020-03-02 15:50 | Outpatient (BNVA) | payer MEDICAID, SELFPAY | PROVIDERS: Family Provider Family Medicine; PCP Family Medicine; Visit Provider Podiatrist Foot & Ankle Surgery | DX: L60.3 Nail dystrophy (principal); L60.0 Ingrowing nail | CPT/HCPCS: 87210 ==

== ENCOUNTER 2020-05-31 08:07 | Outpatient (CLI) | payer MEDICAID, SELFPAY ==
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
== END 2020-05-31 08:08 | disposition home or self-care (01) ==
LOC: RADSHAW 08:16
PROVIDERS: PCP Nurse Practitioner Family; Visit Provider Nurse Practitioner Family
DX: Z87.828 Personal history of other (healed) physical injury and trauma (principal); L72.3 Sebaceous cyst
CPT/HCPCS: 70553; A9579

== ENCOUNTER 2021-04-12 15:36 | Outpatient (CLI) | payer MEDICAID, SELFPAY ==
--- NOTE | 2021-04-12 15:54 | XR_ITS ---
WS: [id number] Right rib detail, 2 views, 04/12/2021 Clinical Data: RT. SIDED RIB PAIN Comparison: None. Findings: No right rib fractures are seen. There is no subcutaneous emphysema or pneumothorax. The soft tissues of the right chest are unremarkable. XR/XR ribs RT 2V* [id number] Impression: Negative right rib detail.
== END 2021-04-12 15:37 | disposition home or self-care (01) ==
PROVIDERS: PCP Nurse Practitioner Family; Visit Provider Nurse Practitioner Family
DX: R07.81 Pleurodynia (principal)
CPT/HCPCS: 71100

== ENCOUNTER 2021-11-13 14:35 | Outpatient (CLI) | payer MEDICAID, SELFPAY ==
--- NOTE | 2021-11-13 14:50 | US_ITS ---
WS: [id number] EARLY OBSTETRICAL ULTRASOUND (<14 WEEKS). HISTORY: POSITIVE TEST COMPARISON: None available. Single intrauterine gestational sac is identified. Cardiac activity at 122 BPM. [place]-rump length alcon sures 0.5 cm which corresponds to a gestation of 6 weeks 2 days. Normal-appearing yolk sac and amnion demonstrated. No subchorionic hemorrhage. No free fluid. Normal size ovaries with no mass. Corpus luteal cyst of Cervix is closed. US/US OB <=14 wk fetus w transvag IMPRESSION: 1. Single intrauterine gestation of 6 weeks 2 days with an EDC of 07/07/2022. 2. Normal cardiac activity.
== END 2021-11-13 14:36 | disposition home or self-care (01) ==
LOC: RAD 14:45
PROVIDERS: PCP Nurse Practitioner Family; Visit Provider Pediatrics
DX: Z32.01 Encounter for pregnancy test, result positive (principal); Z3A.01 Less than 8 weeks gestation of pregnancy
CPT/HCPCS: 76801; 76817

== ENCOUNTER → 2021-12-15 08:09 | Outpatient (BNVA) | payer MEDICAID, SELFPAY | PROVIDERS: PCP Nurse Practitioner Family; Visit Provider Obstetrics & Gynecology | DX: Z34.90 Encounter for supervision of normal pregnancy, unspecified, unspecified trimester (principal) | CPT/HCPCS: 80307; 81000; 82950; 84443; 85025; 86592; 86762; 86787; 86803; 86850; 86900; 87086; 87340 ==

== ENCOUNTER → 2021-12-18 11:35 | Outpatient (BNVA) | payer MEDICAID, SELFPAY | PROVIDERS: PCP Nurse Practitioner Family; Visit Provider Obstetrics & Gynecology | DX: O09.899 Supervision of other high risk pregnancies, unspecified trimester (principal); Z3A.00 Weeks of gestation of pregnancy not specified | CPT/HCPCS: 81000; 87086 ==

== ENCOUNTER → 2021-12-29 08:40 | Outpatient (BNVA) | payer MEDICAID, SELFPAY | PROVIDERS: PCP Nurse Practitioner Family; Visit Provider Obstetrics & Gynecology | DX: O09.899 Supervision of other high risk pregnancies, unspecified trimester (principal) | CPT/HCPCS: 81000; 87491; 87591; 88175 ==

== ENCOUNTER → 2022-01-22 10:56 | Outpatient (BNVA) | payer MEDICAID, SELFPAY | PROVIDERS: PCP Nurse Practitioner Family; Visit Provider Obstetrics & Gynecology | DX: O09.899 Supervision of other high risk pregnancies, unspecified trimester (principal); Z3A.00 Weeks of gestation of pregnancy not specified | CPT/HCPCS: 81000 ==

== ENCOUNTER → 2022-02-22 14:10 | Outpatient (BNVA) | payer MEDICAID, SELFPAY | PROVIDERS: PCP Nurse Practitioner Family; Visit Provider Obstetrics & Gynecology | DX: O09.899 Supervision of other high risk pregnancies, unspecified trimester (principal); Z3A.00 Weeks of gestation of pregnancy not specified | CPT/HCPCS: 81000 ==

== ENCOUNTER → 2022-03-19 11:10 | Outpatient (BNVA) | payer MEDICAID, SELFPAY | PROVIDERS: PCP Nurse Practitioner Family; Visit Provider Obstetrics & Gynecology | DX: O09.899 Supervision of other high risk pregnancies, unspecified trimester (principal); Z3A.00 Weeks of gestation of pregnancy not specified | CPT/HCPCS: 81000 ==

== ENCOUNTER 2022-03-21 08:30 | Outpatient (CLI) | payer MEDICAID, SELFPAY ==
--- NOTE | 2022-03-21 08:45 | US_ITS ---
WS: [id number] Limited obstetrical ultrasound. HISTORY: Follow-up heart. COMPARISON: 02/16/2022. Single intrauterine gestation in cephalic position with heart rate at 133 bpm. Cervix is closed at 4. 4 cm. Placenta is developing anteriorly. Four-chamber heart and outflow tracts are very well visualized. No abnormality identified. Multiple c ine loops were provided. No pericardial effusion. [place] [id number] IMPRESSION: Normal follow-up imaging of the heart.
== END 2022-03-21 08:31 | disposition home or self-care (01) ==
LOC: RAD 08:31
PROVIDERS: PCP Nurse Practitioner Family; Visit Provider Obstetrics & Gynecology
DX: O09.899 Supervision of other high risk pregnancies, unspecified trimester (principal); Z3A.00 Weeks of gestation of pregnancy not specified
CPT/HCPCS: 76816

== ENCOUNTER → 2022-04-16 09:39 | Outpatient (BNVA) | payer MEDICAID, SELFPAY | PROVIDERS: PCP Nurse Practitioner Family; Visit Provider Obstetrics & Gynecology | DX: O09.899 Supervision of other high risk pregnancies, unspecified trimester (principal); Z3A.00 Weeks of gestation of pregnancy not specified | CPT/HCPCS: 81000; 82950; 85025 ==

== ENCOUNTER 2022-05-25 06:59 | Outpatient (CLI) | payer MEDICAID, SELFPAY ==
--- NOTE | 2022-05-25 | US_ITS ---
WS: [id number] LIMITED OBSTETRICAL ULTRASOUND HISTORY: GROWTH CHECK COMPARISON: 11/13/2021, 02/16/2022 Presentation: Vertex Cervix: Closed and normal length. Placenta: Anterior, no previa or abruption. Grade: 1 HEART: FHR of 141 BPM. measurements: BPD = 8.3 cm = 33w3d HC = 31.0 cm = 34w5d AC = 31.1 cm = 35w0d FL = 6.6 cm = 34w1d MAXX: 11.7 cm; largest vertical pocket 4.8 cm. EFW: 2462 g; 72 %. AGA by ultrasound: 34w2d DINESH by ultrasound: 07/04/2022 Measurements are internally concordant. Appropriate growth of the fetus since the first trimester liza smith. US/[place] [id number] IMPRESSION: 1. Single intrauterine gestation of 34 weeks 2 days with an EDC of 07/04/2022. Appropriate growth since the first trimester study. No growth asymmetry. 2. Estimated weight at the 72nd percentile for age. 3. Normal amniotic fluid.
== END 2022-05-25 07:00 | disposition home or self-care (01) ==
LOC: RAD 07:01
PROVIDERS: PCP Nurse Practitioner Family; Visit Provider Family Medicine
DX: Z36.89 Encounter for other specified antenatal screening (principal); Z3A.34 34 weeks gestation of pregnancy
CPT/HCPCS: 76816

== ENCOUNTER 2022-07-02 10:56 | Inpatient (IN) | payer MEDICAID, SELFPAY ==
[2022-07-02] VITALS (32 sets, daily range): BP systolic 98–130; BP diastolic 50–64; PULSE 68–115; RESP 14–18; TEMP 36–36.1; BMI 32.8
[2022-07-02] MEDS: miSOPROStol 100 mcg tablet 25 MCG VAGINAL ×3 (08:05→18:37)
[2022-07-02 08:12] LABS: Basophils % 0.4 %; Eosinophils # 0.1 10^3/uL (0.0-0.8); Eosinophils % 1.7 %; Hematocrit 34.5 % (37.0-47.0); Hemoglobin 11.3 g/dL (11.5-15.3); Lymphocytes # 1.6 10^3/uL (0.8-4.8); Lymphocytes % 18.6 %; Mean Corpuscular HGB Conc 32.8 g/dL (30.0-36.0); Mean Corpuscular Hemoglobin 29.4 pg (28.0-34.0); Mean Corpuscular Volume 89.8 fl (81-99); Mean Platelet Volume 9.8 fL (7.4-10.4); Monocytes # 0.7 10^3/uL (0.2-0.9); Monocytes % 7.8 %; Neutrophils # 5.85 10^3/uL (1.8-7.7); Neutrophils % 70.3 %; Nucleated Red Blood Cells % 0 %; Platelet Count 257 10^3/cmm (130-400); Red Blood Count 3.84 10^6/uL (4.1-5.3); Red Cell Distribution Width 14.8 % (12.1-15.1); White Blood Count 8.3 10^3/uL (4.0-10.0)
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
[2022-07-02] MEDS: dextrose 5%-lactated ringers 1,000 ML 125 ML IV (20:39)
[2022-07-02] MEDS: lactated ringers 1,000 ML 999 ML IV (23:13)
[2022-07-02] MEDS: oxytocin 30 UNIT/500 ML BAG IV (23:15)
[2022-07-03] VITALS (62 sets, daily range): BP systolic 85–137; BP diastolic 47–88; PULSE 58–88; RESP 17–18; TEMP 35.6–36.7; O2SAT 97–99
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
--- NOTE | 2022-07-03 00:23 | P.ANES_ITS ---
Anesthesia Procedures Procedure/Date: 07/03/22 epidural Procedure Narrative: epidural complete, bolus given, epidural pump initiated with IT SALES CONSULTANT education given, vitals taken during procedure and satisfactory throughout, patient admits to decrease pain, report of procedure to OB RN Epidural: Time Out Performed: Yes Consents Signed: Procedure Consent Consent: requested by attending/covering physician, from patient, risks and benefits reviewed and patient agrees to proceed Lumbar Level: L3-L4 Epidural position: sitting Epidural procedure: sterile prep of area, 1% lidocaine to numb the area (3 mL), 18 g needle, negative for paresthesia passed, neg for paresthesia, test dose given, 1.5% xylocaine 1:200k epi (5 mL), 0.2% Ropivacaine bolus ml (5 mL), placed PCEA, no systemic response, sterile dressing applied, L.U.D. no apparent complications and 0.2% Ropiavacaine @ mls/hr (13 mL/hr)
[2022-07-03] MEDS: lactated ringers 1,000 ML 999 ML IV (00:38)
--- NOTE | 2022-07-03 06:20 | PM.DELIVERY ---
Delivery Note: Date of delivery: July 03, 2022 Pre-delivery diagnoses: Term Post-delivery diagnoses: Term Delivery of viable male Procedure: Delivering Physician: Virgen Wood DO Estimated blood loss (mL): 50 Pre-Delivery Course: Patient presented for IOL at 39w2d. Given cytotec x 2 and progressed to SVE 4/25/-4. Allowed to rest, eat dinner then 3rd dose cytotec given. Progressed to 4.5/5/-2. Moderate dose pitocin then started and titrated up with adequate contractions. Delivery: Patient progressed to complete. Patient placed in lithotomy position. Patient pushed with adequate effort. With the 2nd push head delivered in ARIANE position, loose nuchal cord was present and reduced. Shoulders and rest of body delivered without difficulty with epidural anesthesia. Mouth and nares bulb suctioned. Infant placed on maternal abdomen. Cord clamped and cut by father of baby after 1 minute delay. Pitocin started at dose. Placenta spontaneously delivered and was later inspected and found to be intact. Fundus was noted to be firm. The vagina and cervix were inspected and no lacerations were noted. Bilateral periurethral abrasions noted to be hemostatic. Fundus was again noted to be firm and without significant bleeding on fundal massage. Male born on [birth year] with 8/9 weighing 3440g. Placenta noted to be intact with centrally inserted 3 vessel umbilical cord. Complications: Maternal none none- noted to have moderate amount of mucous- resolved after deep suction History History History 4 Term 2 0 Miscarriages/Ectopic 1 Living Children 2 Past Pregnancies Del. Date GA/Weeks Outcome Route Wt Inf Gender Labor Lgth Comp. Anesthesia Location Unknown spontaneous 02/19/14 41 live - full term Vaginal 7 lb 8 oz Male Other [facility] 11/18/19 37 live - full term Vaginal Female [facility] Delivery Date: 02/19/14 Last Updated by: Jazz Cornoado MD Induction of labor, meconium stained fluid Delivery Date: 11/18/19 Last Updated by: Virgen Wood DO IOL due to gestational diabetes Coding Level of Care Code Acute Skein Bander for Chg Fwd
--- NOTE | 2022-07-03 07:42 | PC.NURSE ---
Met with infant and mother for first latch. Received history of previous experiences from mother, stated that she felt like she didn't have much milk. Discussed different latching positions, mother chose football hold, assisted mother in positioning herself and . Mother was able to latch infant with minimal assistance. Infant latched with wide mouth, frequent jaw movements noted and this RN and mother were able to identify swallows. Educated on how to tell if infant is getting enough milk, audible swallows, how infant looks (tense / relaxed), voids and stools per day, normal weight loss and when to expect weight gain to weight. Educated on how often needs to eat, sleepy phases after and waking to encourage feeds. Educated on how to document feeds, voids and stools on intake and output sheet.
[2022-07-03] MEDS: prenatal vitamin Capsule 1 CAP PO (08:26)
[2022-07-03] MEDS: docusate sodium 100 mg Capsule PO ×2 (08:26→17:21)
[2022-07-03] MEDS: ibuprofen 800 mg tablet PO ×3 (08:26→20:17)
--- NOTE | 2022-07-03 09:09 | PC.NURSE ---
At bedside with patient and , Patient independently positioned . This RN did assist patient with bringing infant to the breast quickly with hand over hand assistance.
--- NOTE | 2022-07-03 11:07 | PC.NURSE ---
1045 PT UP TO BATHROOM, WENT OVER [facility], PT THEN AMBULATED TO OB8, DID WELL, WENT OVER PP PACK WITH THEM AND TOLD HER THAT SINCE SHE DID WELL SHE COULD BE UP NEEDED BUT FOR SURE CALL ME IF SHE NEEDS HELP.
--- NOTE | 2022-07-03 13:47 | PC.NURSE ---
Rounded on patient. Patient was latching at this time, this RN offered suggestions on hand placement for breast support. Patient was able to latch independently. Discussed when to initiate pumping for return to work.
[2022-07-03 18:54] LABS: Hematocrit 32.5 % (37.0-47.0); Hemoglobin 10.8 g/dL (11.5-15.3); Mean Corpuscular HGB Conc 33.2 g/dL (30.0-36.0); Mean Corpuscular Hemoglobin 29.9 pg (28.0-34.0); Mean Platelet Volume 9.6 fL (7.4-10.4); Platelet Count 220 10^3/cmm (130-400); Red Blood Count 3.61 10^6/uL (4.1-5.3); Red Cell Distribution Width 14.6 % (12.1-15.1); White Blood Count 15.3 10^3/uL (4.0-10.0)
[2022-07-04 04:00] VITALS: BP 99/66; PULSE 72; TEMP 36.5; O2SAT 97
--- NOTE | 2022-07-04 08:38 | PC.NURSE ---
patient stated that she is choosing to no longer breastfeed and is not interested in pumping breastmilk. Educated on engorgement, when it may happen, what it is and how she can help reduce the inflammation, swelling and discomfort, and how long resolution of milk production may take. Recommended firm bra, cool packs and Ibuprofen for discomfort during this time.
--- NOTE | 2022-07-04 08:50 | PM.OBGYDC ---
Discharge Providers ANGLEDOZER OPERATOR Date of Admission: 07/02/22 10:56 Date of Discharge: 07/05/22 Attending Provider at Admission: Virgen Wood DO Attending Provider at Discharge: Virgen Wood DO Primary Care Provider: Little Nelson Diagnoses at Discharge Discharge Diagnosis (1) Spontaneous vaginal delivery: Status: Acute Reason for Visit Reason for Visit: Induction of labor Hospital Course Hospital Course Delivery Note:?? Date of delivery: July 03, 2022 ? Pre-delivery diagnoses: Term ? Post-delivery diagnoses: Term Delivery of viable male ? Procedure: ? Delivering Physician: Virgen Wood DO ? Estimated blood loss (mL): 50 Pre-Delivery Course:?? Patient presented for IOL at 39w2d. Given cytotec x 2 and progressed to SVE 4/25/-4. Allowed to rest, eat dinner then 3rd dose cytotec given. Progressed to 4.5/5/-2. Moderate dose pitocin then started and titrated up with adequate contractions. Delivery:?? Patient progressed to complete. Patient placed in lithotomy position. Patient pushed with adequate effort. With the 2nd push head delivered in ARIANE position, loose nuchal cord was present and reduced. Shoulders and rest of body delivered without difficulty with epidural anesthesia. Mouth and nares bulb suctioned. placed on maternal abdomen. Cord clamped and cut by father of baby after 1 minute delay. ? Pitocin started at dose. Placenta spontaneously delivered and was later inspected and found to be intact. Fundus was noted to be firm. The vagina and cervix were inspected and no lacerations were noted. Bilateral periurethral abrasions noted to be hemostatic. Fundus was again noted to be firm and without significant bleeding on fundal massage. Male born on [birth year] at 39w3d with 8/9 weighing 3440g. Placenta noted to be intact with centrally inserted 3 vessel umbilical cord. Complications: Maternal none ? Infant none- noted to have moderate amount of mucous- resolved after deep suction Course:Patient underwent on 07/03/22. course was uncomplicated. Following delivery patient ambulated well, tolerated a normal diet without nausea or vomiting. Pain was controlled on PO medications,intially and chose to switch to formulat feeding prior to discharge, no leg/calf pain, no calf/leg swelling, normal urination, passing gas and normal bowel movements. Vaginal bleeding minimal. labs - hemoglobin decreased from 11.3 prior to delivery to 10.8 . control was discussed and patient prefers IUD- plan for referral for this outpatient. Follow-up planned for 2 and 6 weeks at [facility]. Warning signs for endometritis, pre-eclampsia, DVT/PE, mastitis were reviewed, discussed additional warning signs including increased vaginal bleeding, worsening abdominal pain. Pelvic rest and activity precautions reviewed as well. She is discharged on 07/04/22 in stable condition. Information Peripartum Data: Infant Delivery Method: Vaginal Laceration description: None Physical Exam Const: COMMON NORMALS: no acute distress, patient oriented x3, no limitations, healthy appearing, alert and well nourished Resp: COMMON NORMALS: normal respiratory effort and clear to auscultation bilaterally EFFORT & INSPECTION: Yes able to speak in complete sentences AUSCULTATION: clear to auscultation bilaterally Cardio: COMMON NORMALS: regular rate, regular rhythm, S1 normal heart sound present, S2 normal heart sound present, No murmurs present (Cardio) and Peripheral pulses 2+ throughout RATE: regular rate RHYTHM: regular rhythm HEART SOUNDS: S1 normal heart sound present and S2 normal heart sound present PERIPHERAL PULSES: Peripheral pulses 2+ throughout : OTHER: uterine fundus firm and below umbilicus Extremity: GENERAL: No calf tenderness, Yes edema (trace lower extremity ) and No palpable cord Neuro: COMMON NORMALS: patient oriented x3 SENSORIUM/ORIENTATION: Yes alert Psych: COMMON NORMALS: mental status grossly normal, Normal thought process present, cooperative, normal affect, speech normal and activity/motor behavior normal SPEECH: Yes normal speech THOUGHT PROCESS: Normal thought process present Skin: COMMON NORMALS: turgor normal GENERAL SKIN EXAM: turgor normal and no pallor Urinary Catheter Management: Mclean: Cath Placed During This Visit: yes, but has since been removed by the nurse Reason for Continuing Indwelling Catheter: Decision to DC Catheter Urinary Catheter Date of Insertion: 07/03/22 Urinary Catheter Time of Insertion: 01:20 Date Urinary Catheter Removed: 07/03/22 Time Urinary Catheter Discontinued: 05:58 History History History 4 Term 2 0 Miscarriages/Ectopic 1 Living Children 2 Past Pregnancies Del. Date GA/Weeks Outcome Route Wt Inf Gender Labor Lgth Comp. Anesthesia Location Unknown spontaneous 02/19/14 41 live - full term Vaginal 7 lb 8 oz Male Other [facility] 11/18/19 37 live - full term Vaginal Female [facility] Delivery Date: 02/19/14 Last Updated by: Jazz Coronado MD Induction of labor, meconium stained fluid Delivery Date: 11/18/19 Last Updated by: Virgen Wood DO IOL due to gestational diabetes Discharge Data Studies Completed and Pending Laboratory Results WBC 15.3 10^3/uL (4.0-10.0) H 07/03/22 18:45 RBC 3.61 10^6/uL (4.1-5.3) L 07/03/22 18:45 Hgb 10.8 g/dL (11.5-15.3) L 07/03/22 18:45 Hct 32.5 % (37.0-47.0) L 07/03/22 18:45 MCV 90.0 fl (81-99) 07/03/22 18:45 MCH 29.9 pg (28.0-34.0) 07/03/22 18:45 MCHC 33.2 g/dL (30.0-36.0) 07/03/22 18:45 RDW 14.6 % (12.1-15.1) 07/03/22 18:45 Plt Count 220 10^3/cmm (130-400) 07/03/22 18:45 MPV 9.6 fL (7.4-10.4) 07/03/22 18:45 Neut % (Auto) 70.3 % 07/02/22 07:30 Lymph % (Auto) 18.6 % 07/02/22 07:30 [place] % (Auto) 7.8 % 07/02/22 07:30 Eos % (Auto) 1.7 % 07/02/22 07:30 Baso % (Auto) 0.4 % 07/02/22 07:30 Neut # (Auto) 5.85 10^3/uL (1.8-7.7) 07/02/22 07:30 Lymph # (Auto) 1.6 10^3/uL (0.8-4.8) 07/02/22 07:30 [place] # (Auto) 0.7 10^3/uL (0.2-0.9) 07/02/22 07:30 Eos # (Auto) 0.1 10^3/uL (0.0-0.8) 07/02/22 07:30 Baso # (Auto) 0.0 10^3/uL (0.0-0.1) 07/02/22 07:30 Nucleated RBC % (auto) 0 % 07/02/22 07:30 Nucleated RBCs # 0.0 /100WBC 07/02/22 07:30 Vitals Last Vital Signs Temp 97.7 F 07/04/22 04:00 Pulse 72 07/04/22 04:00 Resp 17 07/03/22 22:22 BP 99/66 07/04/22 04:00 Pulse Ox 97 07/04/22 04:00 O2 Del Method 07/04/22 04:00 Discharge Plan Discharge Patient Disposition: Home Condition: Stable Prescriptions: New ibuprofen 800 mg Tablet See Rx Instructions .ROUTE .COMPLEX Qty: 30 0RF Rx Instructions: 800 mg orally three times a day as needed Continued [id number]-nbi-riq-nrdl oil 400 mcg-35 mg -25 mg-5 mg tablet,chewable PO Discontinued promethazine 25 mg tablet 25 mg PO Q6H PRN (Reason: nausea and vomiting) Qty: 60 0RF Discharge Orders: Discharge Order (Routine); Ordered 07/04/22 Ordered By: Virgen Wood Referrals: Virgen Wood DO [Physician] - 07/18/22 1:00 pm (Your 2 week appointment will be 07/18 at 1:00pm. Your 6 week appointment will be 08/15 at 1:00pm.) Discharge Diet: Usual diet Discharge Activity: Increase activity as tolerated Patient Instructions: Ibuprofen (By mouth), Depression (DC), Bleeding (DC), Preeclampsia and Eclampsia After Delivery (GEN), Breast Care for the Non- Mother (DC), OB Discharge Report, OB Food/Drug Interaction Guide, OB Care at Home, Opioid Safety, OB Home Care, OB Vaginal Deliveries Activity Restrictions/Additional Instructions: Pelvic rest for 6 weeks. Follow-up in [address] Wood at [facility]. 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
[2022-07-04] MEDS: docusate sodium 100 mg Capsule PO (09:04)
[2022-07-04] MEDS: prenatal vitamin Capsule 1 CAP PO (09:04)
[2022-07-04] MEDS: ibuprofen 800 mg tablet PO (09:04)
[2022-07-04 10:00] VITALS: BP 112/72; PULSE 73; RESP 16; TEMP 36.7; O2SAT 98
[2022-07-04 10:15] VITALS: BP 112/72; PULSE 73; RESP 16; TEMP 36.7; O2SAT 98
--- NOTE | 2022-07-04 13:46 | ANE.PACU2 ---
Inpatient post-anesthesia follow up: Airway intact: Yes Vital signs: Temperature 98.0 F Pulse Rate 73 Respiratory Rate 16 Blood Pressure 112/72 Pulse Oximetry 98 Oxygen Delivery Me thod Room Air Oxygen Flow Rate Fraction of Inspir ed Oxygen Hydration adequate: Yes Nausea and vomiting: No Pain level: 1 Mental status: Baseline
== END 2022-07-04 10:15 | disposition home or self-care (01) | DRG 807 ==
LOC: OPOB 10:56 → OBGYN 10:56
PROVIDERS: Absent Provider Family Medicine; Admitting Provider Family Medicine; PCP Nurse Practitioner Family; Visit Provider Family Medicine
DX: O69.2XX0 Labor and delivery complicated by other cord entanglement, with compression, not applicable or unspecified (principal); Z37.0 Single live birth; O99.344 Other mental disorders complicating childbirth; O99.334 Smoking (tobacco) complicating childbirth; F17.290 Nicotine dependence, other tobacco product, uncomplicated; Z3A.39 39 weeks gestation of pregnancy; F32.9 Major depressive disorder, single episode, unspecified
CPT/HCPCS: 36415; 51702; 59025; 59409; 85025; 85027; 98960; 99211; J2795

== ENCOUNTER 2023-01-24 02:35 | Emergency (ER) | payer MEDICAID, SELFPAY ==
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
[2023-01-24 02:52] VITALS: BP 134/78; PULSE 83; RESP 20; TEMP 36.8; O2SAT 96; BMI 30.7
[2023-01-24 03:12] VITALS: BP 124/62; PULSE 83; RESP 16; O2SAT 98
--- NOTE | 2023-01-24 03:16 | PC.NURSE ---
When assessing patient, patient stated that she has repeated herself 4 fucking times, no ones has looked her over properly and she is leaving and will go to [facility] where they know what they are doing. Nurse stated that she had meds for her and she refused them and walked out the door.
== END 2023-01-24 03:19 | disposition home or self-care (01) ==
PROVIDERS: Emergency Provider Nurse Practitioner Family; PCP Nurse Practitioner Family
DX: J40 Bronchitis, not specified as acute or chronic (principal)
CPT/HCPCS: 99283

== ENCOUNTER 2024-10-26 12:36 | Emergency (ER) | payer MEDICAID, SELFPAY ==
[2024-10-26 12:38] VITALS: BP 129/84; PULSE 138; RESP 17; TEMP 37.6; O2SAT 97; BMI 32.4
--- NOTE | 2024-10-26 12:39 | ECG_ITS ---
[employer] Test Date: 2024-10-26 Pat Name: Casie Reid Department: Room: Gender: Female [employer] Targeting Supervisor: : 1995 Requested By: Janes Stovall Order Number: [id number] Kwon MD: Iglesia Gipson M.D. Measurements Intervals [place] Rate: 139 P: 65 AK: 146 QRS: -16 QRSD: 72 T: 71 QT: 280 QTc: 426 Interpretive Statements SINUS TACHYCARDIA POSSIBLE ANTERIOR MYOCARDIAL INFARCTION , PROBABLY OLD [30 ms Q WAVE IN V3/V4, OR R < 0.2 mV IN V4] No previous ECG available for comparison Electronically Signed On 10-29-2024 22:07:23 COAT PADDER by Iglesia Gipson M.D. [email or web address] [email or web address]
--- NOTE | 2024-10-26 13:10 | XRR_ITS ---
PROCEDURE INFORMATION: Exam: XR Chest Exam date and time: 10/26/2024 1:19 PM Age: 29 years old Clinical indication: Chest pain/lightheadedness/dizziness since yesterday and a cough started this morning TECHNIQUE: Imaging protocol: Radiologic exam of the chest. Views: 1 view. COMPARISON: CR XR chest 1V [id number] 07/14/2018 8:28 AM FINDINGS: Lungs: Unremarkable. No consolidation. Pleural spaces: Unremarkable. No pleural effusion. No pneumothorax. Heart/Mediastinum: Unremarkable. No cardiomegaly. Bones/joints: Unremarkable. XR/XR chest 1V portable [id number] IMPRESSION: No acute findings.
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
[2024-10-26] MEDS: acetaminophen 500 mg Tablet 1000 MG PO (13:24)
[2024-10-26 13:27] LABS: Rapid Strep A Test Negative (Negative)
[2024-10-26] MEDS: sodium chloride 0.9% 1,000 ML 999 ML IV (13:30)
[2024-10-26 13:34] VITALS: BP 139/79; PULSE 111; RESP 16; O2SAT 98
[2024-10-26 13:39] LABS: Basophils # 0.1 10^3/uL (0.0-0.1); Basophils % 0.6 %; Eosinophils % 0.3 %; Hematocrit 42.3 % (36-47); Lymphocytes % 10.9 %; Mean Corpuscular HGB Conc 33.6 g/dL (30-55); Mean Corpuscular Hemoglobin 30.7 pg (27-33); Mean Corpuscular Volume 91.6 fl (85-98); Mean Platelet Volume 9.7 fL (7.4-10.4); Monocytes % 10.9 %; Neutrophils # 6.92 10^3/uL (1.8-7.7); Nucleated Red Blood Cells % 0 %; Platelet Count 227 10^3/cmm (157-399); Red Blood Count 4.62 10^6/uL (3.85-5.65); Red Cell Distribution Width 12.7 % (12.1-15.1); White Blood Count 8.99 10^3/uL (3.29-11.43)
[2024-10-26 13:54] LABS: Covid PCR NEGATIVE (Negative); Influenza A POSITIVE (Negative); Influenza B NEGATIVE (Negative); Respiratory Syncytial Virus Ce NEGATIVE (Negative)
[2024-10-26 13:59] LABS: Alanine Aminotransferase 14 U/L (0-33); Albumin Level 4.2 g/dL (3.5-5.2); Alkaline Phosphatase 99 U/L (35-105); Anion Gap 14.6 (5-19); Aspartate Amino Transferase 16 U/L (0-32); Blood Urea Nitrogen 4 mg/dL (6-20); Calcium 9.3 mg/dL (8.5-10.5); Carbon Dioxide 24 mmol/L (22-29); Chloride 98 mmol/L (98-107); Creatinine Clr Calc Pharmacy 129.0827; Globulin 3.4 g/dL (1.3-4.6); Glomerular Filtration Rate 98.3 mL/min (90-130); Glucose 138 mg/dL (65-115); Osmolality Calculated 275 mOsm/kg (285-295); Potassium 3.6 mmol/L (3.5-5.1); Sodium 133 mmol/L (136-145); Total Bilirubin 0.2 mg/dL (0.15-1.2); Total Protein 7.6 g/dL (6.6-8.7)
[2024-10-26 14:03] VITALS: BP 143/77; PULSE 102; RESP 16; O2SAT 96
[2024-10-26 14:28] VITALS: BP 143/77; PULSE 100; RESP 16; TEMP 37.2; O2SAT 97
== END 2024-10-26 14:28 | disposition home or self-care (01) ==
PROVIDERS: Emergency Provider Emergency Medicine; PCP Nurse Practitioner Family
DX: J10.1 Influenza due to other identified influenza virus with other respiratory manifestations (principal); Z11.52 Encounter for screening for COVID-19
CPT/HCPCS: 36415; 71045; 80053; 85025; 87081; 87637; 87880; 93005; 96360; 99285; J7030

== ENCOUNTER 2025-02-19 09:52 | Observation (INO) | payer MEDICAID, SELFPAY ==
[2025-02-19] VITALS (19 sets, daily range): BP systolic 98–132; BP diastolic 59–85; PULSE 82–121; RESP 16–22; TEMP 36.3–37.7; O2SAT 94–98; BMI 29.9; BMI 32.5
[2025-02-19 10:16] LABS: Basophils # 0.1 10^3/uL (0.0-0.1); Basophils % 0.3 %; Eosinophils # 0.1 10^3/uL (0.0-0.8); Eosinophils % 0.3 %; Hematocrit 44.1 % (36-47); Lymphocytes # 0.8 10^3/uL (0.8-4.8); Lymphocytes % 4.9 %; Mean Corpuscular HGB Conc 33.6 g/dL (30-55); Mean Corpuscular Hemoglobin 30.6 pg (27-33); Mean Corpuscular Volume 91.3 fl (85-98); Mean Platelet Volume 9.3 fL (7.4-10.4); Monocytes # 0.8 10^3/uL (0.2-0.9); Monocytes % 4.9 %; Neutrophils # 13.87 10^3/uL (1.8-7.7); Nucleated Red Blood Cells % 0 %; Platelet Count 281 10^3/cmm (157-399); Red Blood Count 4.83 10^6/uL (3.85-5.65); Red Cell Distribution Width 12.8 % (12.1-15.1); White Blood Count 15.61 10^3/uL (3.29-11.43)
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
--- NOTE | 2025-02-19 10:26 | CT_ITS ---
WS: [id number] CT scan of the abdomen and pelvis with IV contrast. Additional two-dimensional coronal and sagittal reconstruction was performed. 02/19/2025 Clinical Data: RLQ abdominal pain; fevers Comparison: None. DLP: 679.[address] scans at [facility] use at least one of these dose optimization techniques: automated exposure control; mA and/or kV adjustment per patient size (includes targeted exams where dose is matched to clinical indication); or iterative reconstruction. Findings: The lower lungs show no nodules, masses or effusions. The liver, gallbladder, spleen, adrenal glands and pancreas are normal. The kidneys show equal bilateral contrast excretion with no cyst or masses. The abdominal aorta is normal in size. There is dilatation of the appendix to 0.8 cm but no stone is seen. There is fluid in the cecum and ascending colon probably from inflammatory change. No abscess, ascites or adenopathy can be seen. No abnormal intra-abdominal mass is present. No obstruction or bowel dilatation is present. The bladder is unremarkable. There is an IUD in the uterus. No inguinal hernia is seen. The bones of the lower thorax, lumbar spine, pelvis, and hips are normal. CT/CT abdomen pelvis w con* [id number] Impression: 1. Probable appendicitis and see colitis with inflammatory change of the a send ing colon. 2. No evidence of perforation, abscess or intra-abdominal mass.
[2025-02-19 10:29] LABS: HCG, Serum Qual Negative (Negative)
[2025-02-19 10:34] LABS: Alanine Aminotransferase 14 U/L (0-33); Albumin Level 4.3 g/dL (3.5-5.2); Alkaline Phosphatase 110 U/L (35-105); Anion Gap 17.5 (5-19); Aspartate Amino Transferase 14 U/L (0-32); Blood Urea Nitrogen 7 mg/dL (6-20); Calcium 9.5 mg/dL (8.5-10.5); Carbon Dioxide 22 mmol/L (22-29); Chloride 99 mmol/L (98-107); Creatinine Clr Calc Pharmacy 107.5428; Globulin 3.9 g/dL (1.3-4.6); Glomerular Filtration Rate 83.7 mL/min (90-130); Glucose 123 mg/dL (65-115); Lipase 28 U/L (13-60); Osmolality Calculated 279 mOsm/kg (285-295); Potassium 3.5 mmol/L (3.5-5.1); Sodium 135 mmol/L (136-145); Total Bilirubin 0.3 mg/dL (0.15-1.2); Total Protein 8.2 g/dL (6.6-8.7)
[2025-02-19] MEDS: ondansetron 2 mg/ML SDV 2 mL 4 MG IVP (10:41)
[2025-02-19] MEDS: morphine 4 mg/mL SDV 1 mL IVP ×2 (10:41→12:30)
[2025-02-19] MEDS: iohexol 350 mg/mL 500 mL Btl (per mL) IV (10:54)
[2025-02-19 11:17] LABS: Lactic Sepsis W/Reflex 1.4 mmol/L (0.5-2.2)
[2025-02-19] MEDS: ketorolac 30 mg/mL INJ IVP (11:32)
[2025-02-19 11:33] LABS: Bilirubin Urine Negative (Negative); Blood Urine Negative (Negative); Glucose Urine UA Negative (Normal); Ketones Urine 1+ (Negative); Leukocyte Esterase Urine Negative (Negative); Nitrate Urine Negative (Negative); Protein Urine 1+ (Negative); Urine Appearance Clear (CLEAR); Urine Color Yellow (Yellow)
[2025-02-19] MEDS: piperacillin-tazobactam 3.375 GM in sodium chloride 0.9% (plus) 50 ML IV ×2 (11:33→17:48)
[2025-02-19] MEDS: sodium chloride 0.9% 1,000 ML 999 ML IV (11:33)
[2025-02-19 11:35] LABS: Add Urine Microscopic? YES; Bacteria Urine 3+ /hpf; Hyaline Casts Urine 0-4 /lpf; Squamous Epithelial Cell Urine 0-5 /hpf (0-5); WBC Urine 21-50 /hpf (0-5)
[2025-02-19 12:07] LABS: Add Urine Culture? Yes; Specific Gravity, Urine 1.087 (1.005-1.030); UA Slide Review UA Slide Review Perf
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
[2025-02-19] MEDS: sodium chloride 0.9% 1,000 ML 30 ML IV (13:29)
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
[2025-02-19 13:53] LABS: OR HCG Qualitative Urine Negative (Negative)
[2025-02-19] MEDS: lidocaine-epi 1% 20 mL INJ 10 ML INJECTION (14:18)
[2025-02-19] MEDS: BUPivacaine 0.25% INJ 10 mL INJECTION (14:19)
--- NOTE | 2025-02-19 14:51 | PM.OP ---
Operative Report Date of procedure: February 19, 2025 Pre-op diagnosis: Acute appendicitis and colitis Post-op diagnosis: Acute appendicitis and colitis Post-op findings: Appendix was not in the right lower quadrant mildly distended with only minimal hyperemia. The ascending colon appeared hyperemic but intact no significant free fluid in the abdomen. Procedure done: Laparoscopic appendectomy Surgeon: Stefano Calixto MD Financial Assistant: ROSE OR STaff Estimated blood loss: 5cc Complications: None apparent Brief History: 30-year-old female who presents with 3 days of severe right lower quadrant abdominal pain a CT scan show evidence of possible acute appendicitis with also a finding of colitis of the ascending colon and cecum. After discussion recommended for suicide to proceed to the OR for a laparoscopic appendectomy. Procedure: Patient was brought into the OR, placed in a supine position. General anesthesia was given. The abdomen was prepped and draped in usual sterile fashion. Timeout was conducted. The abdomen was accessed via a 5 mm Optiview trocar in the left upper quadrant, initial pneumoperitoneum was obtained and initial laparoscopy showed no evidence of visceral injury during entry. At 12 mm trocar was placed in this infraumbilical location under direct visualization another 5 mm trocar was placed in the suprapubic location under direct visualization. Initial laparoscopy showed evidence of some mild colitis of the ascending cecum, no other evidence of intra-abdominal pathology. The appendix was located in the right lower quadrant. The appendix was mildly hyperemic and just slightly dilated. I elevated the appendix and then to the mesoappendix with LigaSure until the base of the appendix at the level of the cecum was reached. The base was completely healthy, I transected at the level of the base with a 45 mm blue load Endo JOSE stapler. The staple line appear intact and hemostatic. The specimen was removed of the abdomen using an Endo Catch bag. No evidence of bleeding was noted. I then took some omentum and placed in the right lower quadrant in appendiceal bed. Additional laparoscopy showed no evidence of other additional pathology the colon otherwise appeared healthy the small bowel appeared healthy I could not identify any other sources of intra-abdominal source of infection. Umbilical trocar was closed with a Anshul-Emerita suture passer and 0 Vicryl under direct visualization. The suprapubic trocar was removed and appeared hemostatic the left upper quadrant trocar was used to acquire pneumoperitoneum and subsequently removed. The wounds were hemostatic, the wounds were closed in layers using #3-0 Vicryl to subcutaneous tissue #4 Monocryl for the skin. Local anesthesia was light and Dermabond was applied on top of the skin. The patient tolerated well the procedure, at the end of the procedure all counts were correct. The patient was transferred to the PACU in stable condition.
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
[2025-02-19] MEDS: ketorolac 30 mg/mL INJ 15 MG IVP ×2 (16:12→21:37)
--- NOTE | 2025-02-19 16:35 | ANE.PACU2 ---
Inpatient post-anesthesia follow up: Airway intact: Yes Vital signs: Temperature 97.7 F Pulse Rate 60 Respiratory Rate 17 Blood Pressure 110/69 Pulse Oximetry 98 Oxygen Delivery Me thod Room Air Oxygen Flow Rate Fraction of Inspir ed Oxygen Hydration adequate: Yes Nausea and vomiting: No Pain level: 2 Mental status: Baseline
[2025-02-19] MEDS: acetaminophen 1,000 MG/100 ML PIGGYBACK 400 MG IV ×2 (17:47→23:56)
[2025-02-19] MEDS: lactated ringers 1,000 ML 125 ML IV (20:36)
[2025-02-20] VITALS: BP 98/57; PULSE 73; RESP 15; TEMP 36.4; O2SAT 96
[2025-02-20] MEDS: piperacillin-tazobactam 3.375 GM in sodium chloride 0.9% (plus) 50 ML IV (01:59)
[2025-02-20] MEDS: ketorolac 30 mg/mL INJ 15 MG IVP (02:47)
[2025-02-20] MEDS: lactated ringers 1,000 ML 125 ML IV (03:59)
[2025-02-20 05:19] VITALS: BP 95/54; PULSE 64; RESP 17; TEMP 36.4; O2SAT 95
[2025-02-20 05:25] LABS: Basophils % 0.2 %; Hematocrit 38.8 % (36-47); Lymphocytes # 0.8 10^3/uL (0.8-4.8); Lymphocytes % 6.2 %; Mean Corpuscular HGB Conc 32.7 g/dL (30-55); Mean Corpuscular Hemoglobin 30.7 pg (27-33); Mean Corpuscular Volume 93.7 fl (85-98); Mean Platelet Volume 9.6 fL (7.4-10.4); Monocytes # 0.9 10^3/uL (0.2-0.9); Monocytes % 6.9 %; Neutrophils # 11.09 10^3/uL (1.8-7.7); Neutrophils % 86.4 %; Nucleated Red Blood Cells % 0 %; Platelet Count 243 10^3/cmm (157-399); Red Blood Count 4.14 10^6/uL (3.85-5.65); Red Cell Distribution Width 12.8 % (12.1-15.1); White Blood Count 12.82 10^3/uL (3.29-11.43)
[2025-02-20 05:51] LABS: Anion Gap 14.7 (5-19); Blood Urea Nitrogen 5 mg/dL (6-20); Calcium 8.8 mg/dL (8.5-10.5); Carbon Dioxide 22 mmol/L (22-29); Chloride 105 mmol/L (98-107); Creatinine Clr Calc Pharmacy 149.2274; Glomerular Filtration Rate 116.6 mL/min (90-130); Glucose 129 mg/dL (65-115); Osmolality Calculated 285 mOsm/kg (285-295); Potassium 3.7 mmol/L (3.5-5.1); Sodium 138 mmol/L (136-145)
[2025-02-20] MEDS: diphenhydrAMINE 50 mg/mL SDV 1mL 25 MG IVP (06:57)
[2025-02-20] MEDS: ondansetron 2 mg/ML SDV 2 mL 4 MG IVP (06:57)
[2025-02-20 07:45] VITALS: BP 110/69; PULSE 60; RESP 17; TEMP 36.5; O2SAT 98
--- NOTE | 2025-02-20 08:19 | PM.DCS ---
Discharge Providers Date of Admission: 02/19/25 16:05 Date of Discharge: February 20, 2025 Attending Provider at Admission: Stefano Calixto MD Attending Provider at Discharge: Stefano Calixto MD Primary Care Provider: Little Nelson Diagnoses at Discharge Discharge Diagnosis (1) Acute appendicitis: Status: Acute Qualifiers: Acute appendicitis type: with generalized peritonitis Appendicitis abscess presence: without abscess Appendicitis gangrene presence: without gangrene Appendicitis perforation presence: without perforation Qualified Code(s): K35.200 - Acute appendicitis with generalized peritonitis, without perforation or abscess (2) Colitis: Status: Acute (3) UTI (urinary tract infection): Status: Acute Qualifiers: Hematuria presence: without hematuria Urinary tract infection type: acute cystitis Qualified Code(s): N30.00 - Acute cystitis without hematuria Reason for Visit Reason for Visit: right side lower abdominal pain Hospital Course Hospital Course This is a 30-year-old female who presented to the hospital with right lower quadrant abdominal pain and CT scan showed evidence of colitis and appendicitis, she was taken for a laparoscopic appendectomy. IntraOp findings showed only mildly dilated appendix with minimal ([place] appendectomy was done and patient was kept overnight for observation due to the other finding of colitis, overnight vitals have been stable no more fever tachycardia resolved the white count has trended down and patient is feeling better with minimal abdominal pain. She will be allowed to transition to the outpatient setting. Of note she did have a migraine this morning, she will restart her at home medication was discharged. Physical Exam GI: OTHER: Abdominal examination is benign abdomen is soft appropriately tender surgical incisions covered with Dermabond Discharge Data Studies Completed and Pending Completed Studies During Hospitalization Category Date Time Status CT abdomen pelvis w con* [id number] Urgent Cat Scan 02/19/25 10:26 Completed Pending at discharge Category Date Time Status Basic Metabolic Panel AM LABS Lab 02/21/25 04:00 Ordered Basic Metabolic Panel AM LABS Lab 02/22/25 04:00 Ordered Blood Culture Stat Lab 02/19/25 12:05 Results Complete Blood Count w/Auto AM LABS Lab 02/21/25 04:00 Ordered Complete Blood Count w/Auto AM LABS Lab 02/22/25 04:00 Ordered Urine Culture Stat Lab 02/19/25 11:17 Received Pathology: Surgical [PTH] Routine Pth 02/19/25 14:46 Received Radiology Impressions Abdomen/Pelvis CT 02/19/25 10:26 Impression: 1. Probable appendicitis and see colitis with inflammatory change of the a sending colon. 2. No evidence of perforation, abscess or intra-abdominal mass. Laboratory Results WBC 12.82 10^3/uL (3.29-11.43) H 02/20/25 05:01 RBC 4.14 10^6/uL (3.85-5.65) 02/20/25 05:01 Hgb 12.70 g/dL (11.27-16.99) 02/20/25 05:01 Hct 38.8 % (36-47) 02/20/25 05:01 MCV 93.7 fl (85-98) 02/20/25 05:01 MCH 30.7 pg (27-33) 02/20/25 05:01 MCHC 32.7 g/dL (30-55) 02/20/25 05:01 RDW 12.8 % (12.1-15.1) 02/20/25 05:01 Plt Count 243 10^3/cmm (157-399) 02/20/25 05:01 MPV 9.6 fL (7.4-10.4) 02/20/25 05:01 Neut % (Auto) 86.4 % 02/20/25 05:01 Lymph % (Auto) 6.2 % 02/20/25 05:01 [place] % (Auto) 6.9 % 02/20/25 05:01 Eos % (Auto) 0.0 % 02/20/25 05:01 Baso % (Auto) 0.2 % 02/20/25 05:01 Neut # (Auto) 11.09 10^3/uL (1.8-7.7) H 02/20/25 05:01 Lymph # (Auto) 0.8 10^3/uL (0.8-4.8) 02/20/25 05:01 [place] # (Auto) 0.9 10^3/uL (0.2-0.9) 02/20/25 05:01 Eos # (Auto) 0.0 10^3/uL (0.0-0.8) 02/20/25 05:01 Baso # (Auto) 0.0 10^3/uL (0.0-0.1) 02/20/25 05:01 Nucleated RBC % (auto) 0 % 02/20/25 05:01 Nucleated RBCs # 0.0 /100WBC 02/20/25 05:01 Sodium 138 mmol/L (136-145) 02/20/25 05:01 Potassium 3.7 mmol/L (3.5-5.1) 02/20/25 05:01 Chloride 105 mmol/L (98-107) 02/20/25 05:01 Carbon Dioxide 22 mmol/L (22-29) 02/20/25 05:01 Anion Gap 14.7 (5-19) 02/20/25 05:01 BUN 5 mg/dL (6-20) L 02/20/25 05:01 Creatinine 0.6 mg/dL (0.5-0.9) 02/20/25 05:01 GFR Calculation 116.6 mL/min (90-130) 02/20/25 05:01 Glucose 129 mg/dL (65-115) H 02/20/25 05:01 Calculated Osmolality 285 mOsm/kg (285-295) 02/20/25 05:01 Lactic Acid 1.4 mmol/L (0.5-2.2) 02/19/25 10:40 Calcium 8.8 mg/dL (8.5-10.5) 02/20/25 05:01 Total Bilirubin 0.3 mg/dL (0.15-1.2) 02/19/25 10:09 AST 14 U/L (0-32) 02/19/25 10:09 ALT 14 U/L (0-33) 02/19/25 10:09 Alkaline Phosphatase 110 U/L (35-105) H 02/19/25 10:09 Total Protein 8.2 g/dL (6.6-8.7) 02/19/25 10:09 Albumin 4.3 g/dL (3.5-5.2) 02/19/25 10:09 Globulin 3.9 g/dL (1.3-4.6) 02/19/25 10:09 Lipase 28 U/L (13-60) 02/19/25 10:09 HCG, Qual Negative (Negative) 02/19/25 10:09 Urine Color Yellow (Yellow) 02/19/25 11:17 Urine Appearance Clear (CLEAR) 02/19/25 11:17 Urine pH 6.0 (5-7) 02/19/25 11:17 Ur Specific [place] 1.087 (1.005-1.030) H 02/19/25 11:17 Urine Protein 1+ (Negative) A 02/19/25 11:17 Urine Glucose (UA) Negative (Normal) 02/19/25 11:17 Urine Ketones 1+ (Negative) H 02/19/25 11:17 Urine Blood Negative (Negative) 02/19/25 11:17 Urine Nitrate Negative (Negative) 02/19/25 11:17 Urine Bilirubin Negative (Negative) 02/19/25 11:17 Urine Urobilinogen 1.0 mg/dL (Negative) 02/19/25 11:17 Ur Leukocyte Esterase Negative (Negative) 02/19/25 11:17 Urine RBC 3-5 /hpf (0-2) 02/19/25 11:17 Urine WBC 21-50 /hpf (0-5) H 02/19/25 11:17 Ur Squamous Epith Cells 0-5 /hpf (0-5) 02/19/25 11:17 Amorphous Sediment Not Reportable 02/19/25 11:17 Urine Bacteria 3+ /hpf (NONE) H 02/19/25 11:17 Hyaline Casts 0-4 /lpf H 02/19/25 11:17 Urine HCG, Qual Negative (Negative) 02/19/25 13:43 Vitals Last Vital Signs Temp 97.7 F 02/20/25 07:45 Pulse 60 02/20/25 07:45 Resp 17 02/20/25 07:45 BP 110/69 02/20/25 07:45 Pulse Ox 98 02/20/25 07:45 O2 Del Method Room Air 02/20/25 07:45 Discharge Plan Discharge Patient Disposition: Home Condition: Stable Prescriptions: New amoxicillin-pot clavulanate 875-125 mg tablet 1 tab PO BID Qty: 14 0RF ketorolac 10 mg tablet 10 mg PO Q8H 4 Days Qty: 12 0RF acetaminophen [Tylenol] 325 mg tablet 650 mg PO Q6H 5 Days Qty: 40 0RF Continued Ajovy Syringe 225 mg/1.5 mL Syringe 225 mg SUBCUT Q30D Nurtec ODT 75 mg Tablet,Disintegrating 75 mg PO PRN PRN (Reason: Migraine Headache) Discharge Orders: Discharge Order (Routine); Ordered 02/20/25 Ordered By: Stefano Calixto Referrals: Little Nelson FNP [Primary Care Provider, Nurse Practitioner] Stefano Calixto MD [Physician, General Surgery] Referral Note: 2 weeks Discharge Diet: Advance as tolerated Discharge Activity: Resume usual activity Patient Instructions: Appendicitis (GEN), Opioid Safety, Pain Management, GI (Gastrointestinal) Soft Diet (DC) Activity Restrictions/Additional Instructions: No heavy lifting for the next 4 to 6 weeks to prevent hernia. Walk is much as possible to improve your recovery. Return to the hospital you have fever chills severe abdominal pain that is getting worse over time despite pain medication. I will see you in the office in 2 weeks for a wound check. Discharge Attestations Time Spent in Discharge Care*: less than 30 min Status at Discharge: Cognitive status at discharge: cognitively intact, Behavioral status at discharge: cooperative, Quality Metrics Clinical Quality Measures [ No reported AMI, CVA or VTE this stay] Coding Level of Care Code Acute Code for [facility] Fwd Diagnoses Acute appendicitis K35.200 Acute appendicitis type: with generalized peritonitis Appendicitis abscess presence: without abscess Appendicitis gangrene presence: without gangrene Appendicitis perforation presence: without perforation Colitis K52.9 UTI (urinary tract infection) N30.00 Hematuria presence: without hematuria Urinary tract infection type: acute cystitis
[2025-02-20 09:02] VITALS: BP 110/69; PULSE 60; RESP 17; TEMP 36.5; O2SAT 98
--- NOTE | 2025-02-20 10:52 | PC.CHAP ---
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 [] Patient/Family/Request visit [] Outpatient visit [] Follow-up visit [] Physician referral [] Code/Alert [x] Routine visit [] Staff referral [] Actively dying [] Patient sleeping [] Family support [] [] Out of room [] Palliative care [] [] Receiving care in room [] Pre-surgical visit [] Trauma [] Long length of stay [] ICU visit [] Other: Relational/Emotional Strength [] Patient feels connected with others/family/visitors/staff [] Distress [] Loneliness/isolation [] Abandonment Spirituality of Patient [] Person of [place] [] Attends Temple of their [place] [] Believes in Prayer [] Reads Bible or Muslim materials [] There are Spiritual issues to be addressed Education Department Registrar Interventions [] Prayer [] Active listening [] Non-anxious presence [] Spiritual/emotional support [] Crisis/trauma care [] Spiritual counseling [] Bereavement support [] Provided bereavement packet [] Provided Bible/devotional materials [] Provided toy/stuffed animal, coloring book to patient or family member [] Provided Communion [] Anointing/[place] [] Salvation [] Completed spiritual assessment [] Other: Impact on Illness or Injury [] Angry [] Fearful [] Anxious [] Often cries [] Exhaustion [] Unable to work [] Unable to attend jainism [] Unable to walk/stand [] Unable to read [] Unable to drive [] Unable to eat/drink [] Unable to sleep [] Unable to be with family [] Patient intubated [] Other: Summary Time spent with patient
== END 2025-02-20 10:30 | disposition home or self-care (01) ==
LOC: ER 12:19 → OR 13:30 → MEDSURG 02-20 00:58
PROVIDERS: Student in an Organized Health Care Education/Training Program; Admitting Provider Surgery; Emergency Provider Physician Assistant; PCP Nurse Practitioner Family; Visit Provider Surgery
PROC: 0DTJ4ZZ Resection of Appendix, Percutaneous Endoscopic Approach (ICD-10-PCS; CPT 44970; principal; 2025-02-19 13:40)
DX: K35.200 Acute appendicitis with generalized peritonitis, without perforation or abscess (principal); K52.9 Noninfective gastroenteritis and colitis, unspecified; N30.00 Acute cystitis without hematuria; F41.8 Other specified anxiety disorders; F17.290 Nicotine dependence, other tobacco product, uncomplicated
CPT/HCPCS: 44970; 36415; 74177; 80048; 80053; 81001; 81025; 83605; 83690; 84703; 85025; 87040; 87086; 88304; 96365; 96375; 99285; A4216; G0378; J0131; J0330; J1100; J1200; J1885; J2250; J2270; J2405; J2543; J2704; J3010; J3490; J7030; J7120; J9999